=== PATIENT | male | born 1960 | race African-American/Black ===

== ENCOUNTER 2017-03-04 14:43 | Inpatient (IN) | payer BC ==
[2017-03-04 16:07] VITALS: BMI 20.9
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
[2017-03-04] MEDS ORDERED: chlordiazePOXIDE HCL 25 MG CAPSULE PO PRN (17:16)
[2017-03-04] MEDS ORDERED: LOPERAMIDE HCL 2 MG CAPSULE PO PRN (17:16)
[2017-03-04] MEDS ORDERED: ACETAMINOPHEN 325 MG TABLET (FP) PO PRN (17:16)
[2017-03-04] MEDS ORDERED: MENTHOL/PHENOL 1 EACH UD MM PRN (17:16)
[2017-03-04] MEDS ORDERED: guaiFENesin/D-METHORPHAN HB 10 ML UNIT-DOSE CUPS PO PRN (17:16)
[2017-03-04] MEDS ORDERED: IBUPROFEN 400 MG TABLET (FP) PO PRN (17:16)
[2017-03-04] MEDS ORDERED: hydrOXYzine PAMOATE 25 MG CAPSULE (FP) PO PRN (17:16)
[2017-03-04] MEDS ORDERED: MAGNESIUM HYDROX 2400MG/30ML ORAL SUSPENSION 30 ML CUP PO PRN (17:16)
[2017-03-04] MEDS ORDERED: MAG HYDROX/AL HYDROX/SIMETH 30 ML UNIT-DOSE CUP PO PRN (17:16)
[2017-03-04] MEDS ORDERED: MAGNESIUM CITRATE 300 ML BOTTLE PO PRN (17:16)
[2017-03-04] MEDS ORDERED: P-EPHED 60MG/TRIPROLIDI 2.5MG TABLET PO PRN (17:16)
[2017-03-04] MEDS ORDERED: chlordiazePOXIDE HCL 25 MG CAPSULE PO ONE (18:15)
[2017-03-04] MEDS: THIAMINE HCL 100 MG TABLET (FP) PO SCH (22:07)
[2017-03-04] MEDS: diphenhydrAMINE HCL 50 MG CAPSULE PO PRN (22:07)
[2017-03-04] MEDS: ATORVASTATIN CA 40 MG TABLET (FP) PO SCH (22:07)
[2017-03-04] MEDS: chlordiazePOXIDE HCL 25 MG CAPSULE PO SCH (22:07)
[2017-03-05] MEDS: chlordiazePOXIDE HCL 25 MG CAPSULE PO SCH ×4 (05:42→22:09)
[2017-03-05 09:48] LABS: MCH 29.2 pg (25.7-33.7); MCHC 31.5 g/dl (32.0-35.9); MEAN CELL VOLUME 92.9 fl (80-96); MEAN PLT VOLUME 9.9 fl (7.5-11.1); PLATELET COUNT 110 K/MM3 (134-434); RDW 23.4 % (11.9-15.9); WHITE BLOOD COUNT 3.4 K/mm3 (4.0-10.0)
[2017-03-05 10:00] LABS: INR 3.34 (0.82-1.09); PROTHROMBIN TIME (PATIENT) 37.6 SEC (9.98-11.88)
[2017-03-05] MEDS: METOPROLOL SUCCINATE 25 MG TAB.SR.24H (FP) PO SCH (10:10)
[2017-03-05] MEDS: PRENATAL VITAMINS W/ FOLIC ACID TABLET (FP) PO SCH (10:10)
[2017-03-05 10:14] LABS: ALBUMIN 2.7 g/dl (3.4-5.0); ANION GAP 6 (8-16); BILIRUBIN,TOTAL 0.4 mg/dL (0.2-1.0); CALCIUM 7.7 mg/dL (8.5-10.1); CO2 27 mmol/L (21-32); GLUCOSE,RANDOM 97 mg/dL (74-106); SGPT/ALT 130 U/L (12-78)
[2017-03-05 10:16] LABS: ALK PHOS 156 U/L (45-117); CREATININE 0.8 mg/dL (0.7-1.3); TOT PROT 7.1 g/dl (6.4-8.2)
--- NOTE | 2017-03-05 10:25 | PN ---
[facility] CIWA - CIWA Score Nausea/Vomitin-No Nausea/No Vomiting Muscle Tremors: 4-Moderate,w/Arms Extend Anxiety: 4-Mod. Anxious/Guarded Agitation: 4-Moderately Restless Paroxysmal Sweats: 1-Minimal Palms Moist Orientation: 0-Oriented Tacttile Disturbances: 3-Moderate Itch/Numb/Burn Auditory Disturbances: 0-None Visual Disturbances: 0-None Headache: 0-None Present CIWA-Ar Total Score: 16 BHS Progress Note (SOAP) Subjective: ANXIETY,SWEATS, BODY ACHES/LEG PAIN. Objective: 03/05/17 10:23 Vital Signs Temperature 97.4 F L 03/05/17 09:35 Pulse Rate 77 03/05/17 09:35 Respiratory Rate 18 03/05/17 09:35 Blood Pressure 114/59 03/05/17 09:35 O2 Sat by Pulse Oximetry (%) Laboratory Last Values WBC 3.4 K/mm3 (4.0-10.0) L 03/05/17 08:00 RBC 3.31 M/mm3 (4.00-5.60) L 03/05/17 08:00 Hgb 9.7 GM/dL (11.7-16.9) L 03/05/17 08:00 Hct 30.7 % (35.4-49) L 03/05/17 08:00 MCV 92.9 fl (80-96) 03/05/17 08:00 MCH 29.2 pg (25.7-33.7) 03/05/17 08:00 MCHC 31.5 g/dl (32.0-35.9) L 03/05/17 08:00 RDW 23.4 % (11.9-15.9) H 03/05/17 08:00 Plt Count 110 K/MM3 (134-434) L 03/05/17 08:00 MPV 9.9 fl (7.5-11.1) 03/05/17 08:00 PT with INR 37.60 SEC (9.98-11.88) H 03/05/17 08:00 INR 3.34 (0.82-1.09) H 03/05/17 08:00 OTHER LABS RESULT PENDING Assessment: 03/05/17 10:24 WITHDRAWAL SX Plan: CONTINUE DETOX
[2017-03-05] MEDS: AMIODARONE HCL 200 MG TABLET (FP) PO SCH (11:44)
[2017-03-05 11:51] LABS: SGOT/AST 406 U/L (15-37)
[2017-03-05] MEDS ORDERED: WARFARIN NA 2 MG TABLET (UD) PO SCH (18:00)
[2017-03-05 21:48] LABS: URINE APPEARANCE CLEAR; URINE BILIRUBIN NEGATIVE (NEGATIVE); URINE BLOOD NEGATIVE (NEGATIVE); URINE COLOR LTYELLOW; URINE GLUCOSE (UA) 1+ (NEGATIVE); URINE KETONE NEGATIVE (NEGATIVE); URINE LEUK ESTERASE NEGATIVE (NEGATIVE); URINE NITRITE NEGATIVE (NEGATIVE); URINE PROTEIN NEGATIVE (NEGATIVE); URINE UROBILINOGEN NEGATIVE mg/dL (0.2-1.0)
[2017-03-05] MEDS: THIAMINE HCL 100 MG TABLET (FP) PO SCH (22:09)
[2017-03-05] MEDS: ATORVASTATIN CA 40 MG TABLET (FP) PO SCH (22:09)
[2017-03-05] MEDS: diphenhydrAMINE HCL 50 MG CAPSULE PO PRN (22:10)
[2017-03-06] MEDS: chlordiazePOXIDE HCL 25 MG CAPSULE PO SCH ×3 (06:16→17:29)
--- NOTE | 2017-03-06 09:52 | EKG ---
Test Reason : Blood Pressure : / mmHG Vent. Rate : 081 BPM Atrial Rate : 081 BPM P-R Int : 198 ms QRS Dur : 096 ms QT Int : 424 ms P-R-T Axes : 067 007 070 degrees QTc Int : 492 ms NORMAL SINUS RHYTHM NONSPECIFIC T WAVE ABNORMALITY PROLONGED QT ABNORMAL ECG NO PREVIOUS ECGS AVAILABLE Confirmed by ALVARO TORRES, DEBBIE ([id number]) on 03/06/2017 9:52:19 AM Referred By: Bradly Rizo Confirmed By:DEBBIE JOHN MD
[2017-03-06] MEDS: PRENATAL VITAMINS W/ FOLIC ACID TABLET (FP) PO SCH (10:13)
[2017-03-06] MEDS: METOPROLOL SUCCINATE 25 MG TAB.SR.24H (FP) PO SCH (10:13)
[2017-03-06] MEDS: AMIODARONE HCL 200 MG TABLET (FP) PO SCH (10:13)
[2017-03-06 10:15] LABS: INR 3.14 (0.82-1.09); PROTHROMBIN TIME (PATIENT) 35.4 SEC (9.98-11.88)
[2017-03-06] MEDS ORDERED: ONDANSETRON *ODT* 4 MG TABLET SL PRN (10:17)
--- NOTE | 2017-03-06 12:52 | PN ---
S CIWA - CIWA Score Nausea/Vomitin-No Nausea/No Vomiting Muscle Tremors: 3 Anxiety: 4-Mod. Anxious/Guarded Agitation: 3 Paroxysmal Sweats: 3 Orientation: 0-Oriented Tacttile Disturbances: 0-None Auditory Disturbances: 0-None Visual Disturbances: 0-None Headache: 0-None Present CIWA-Ar Total Score: 13 BHS Progress Note (SOAP) Subjective: Anxiety,tremors,sweating,interrupted sleep Objective: 03/06/17 12:54 Vital Signs - 8 hr 03/06/17 03/06/17 06:29 09:26 Temperature 97.5 F L 96.9 F L Pulse Rate 76 93 H Respiratory 18 18 Rate Blood Pressure 131/90 124/79 Laboratory Tests 03/05/17 03/05/17 03/05/17 07:00 07:00 08:00 WBC 3.4 L RBC 3.31 L Hgb 9.7 L Hct 30.7 L MCV 92.9 MCH 29.2 MCHC 31.5 L RDW 23.4 H Plt Count 110 L MPV 9.9 PT with INR INR Sodium 138 Potassium 4.0 Chloride 105 Carbon Dioxide 27 Anion Gap 6 L BUN 5 L Creatinine 0.8 Creat Clearance w eGFR > 60 Random Glucose 97 Calcium 7.7 L Total Bilirubin 0.4 AST 406 H ALT 130 H Alkaline Phosphatase 156 H Total Protein 7.1 Albumin 2.7 L Urine Color Urine Appearance Urine pH Ur Specific [place] Urine Protein Urine Glucose (UA) Urine Ketones Urine Blood Urine Nitrite Urine Bilirubin Urine Urobilinogen RPR Titer Nonreactive 03/05/17 03/05/17 03/06/17 08:00 21:39 07:00 WBC RBC Hgb Hct MCV MCH MCHC RDW Plt Count MPV PT with INR 37.60 H 35.40 H INR 3.34 H 3.14 H Sodium Potassium Chloride Carbon Dioxide Anion Gap BUN Creatinine Creat Clearance w eGFR Random Glucose Calcium Total Bilirubin AST ALT Alkaline Phosphatase Total Protein Albumin Urine Color Ltyellow Urine Appearance Clear Urine pH 6.0 Ur Specific [place] 1.010 Urine Protein Negative Urine Glucose (UA) 1+ H Urine Ketones Negative Urine Blood Negative Urine Nitrite Negative Urine Bilirubin Negative Urine Urobilinogen Negative RPR Titer labs noted,we'll continue to hold coumadin Assessment: 03/06/17 12:58 Withdrawal sx. Plan: Continue detox
[2017-03-06] MEDS: diphenhydrAMINE HCL 50 MG CAPSULE PO PRN (22:34)
[2017-03-06] MEDS: ATORVASTATIN CA 40 MG TABLET (FP) PO SCH (22:34)
[2017-03-06] MEDS: chlordiazePOXIDE 5 MG CAPSULE PO SCH (22:34)
[2017-03-06] MEDS: THIAMINE HCL 100 MG TABLET (FP) PO SCH (22:34)
[2017-03-07] MEDS: chlordiazePOXIDE 5 MG CAPSULE PO SCH ×3 (06:15→17:30)
[2017-03-07 09:54] LABS: MCH 29.2 pg (25.7-33.7); MCHC 30.7 g/dl (32.0-35.9); MEAN CELL VOLUME 94.9 fl (80-96); MEAN PLT VOLUME 10.6 fl (7.5-11.1); PLATELET COUNT 106 K/MM3 (134-434); RDW 23.7 % (11.9-15.9); WHITE BLOOD COUNT 3.2 K/mm3 (4.0-10.0)
[2017-03-07 10:05] LABS: INR 2.34 (0.82-1.09); PROTHROMBIN TIME (PATIENT) 26.2 SEC (9.98-11.88)
[2017-03-07 10:07] LABS: ACTIVATED PTT 47.6 SECONDS (26.9-34.4)
[2017-03-07] MEDS: METOPROLOL SUCCINATE 25 MG TAB.SR.24H (FP) PO SCH (10:18)
[2017-03-07] MEDS: PRENATAL VITAMINS W/ FOLIC ACID TABLET (FP) PO SCH (10:18)
[2017-03-07] MEDS: AMIODARONE HCL 200 MG TABLET (FP) PO SCH (10:18)
[2017-03-07 10:35] LABS: ALK PHOS 130 U/L (45-117); SGOT/AST 107 U/L (15-37); SGPT/ALT 68 U/L (12-78)
--- NOTE | 2017-03-07 11:19 | PN ---
S Progress Note (SOAP) Subjective: Interrupted sleep, Fatigue, Nausea, H/A, Body Aches, Diarrhea, Sweating. Objective: PT. A & O X 3, OBSERVED AMBULATING ON UNIT. NO ACUTE DISTRESS. PT. REPORTS HISTORY OF ANEMIA, FOR WHICH HE HAS TAKEN IRON SUPPLEMENTATION IN PAST. 03/07/17 11:17 Vital Signs Temperature 98.0 F 03/07/17 09:22 Pulse Rate 69 03/07/17 09:22 Respiratory Rate 18 03/07/17 09:22 Blood Pressure 149/92 03/07/17 09:22 O2 Sat by Pulse Oximetry (%) Laboratory Tests 03/05/17 03/05/17 03/05/17 07:00 07:00 08:00 WBC 3.4 L RBC 3.31 L Hgb 9.7 L Hct 30.7 L MCV 92.9 MCH 29.2 MCHC 31.5 L RDW 23.4 H Plt Count 110 L MPV 9.9 PT with INR INR PTT (Actin FS) Sodium 138 Potassium 4.0 Chloride 105 Carbon Dioxide 27 Anion Gap 6 L BUN 5 L Creatinine 0.8 Creat Clearance w eGFR > 60 Random Glucose 97 Calcium 7.7 L Total Bilirubin 0.4 AST 406 H ALT 130 H Alkaline Phosphatase 156 H Total Protein 7.1 Albumin 2.7 L Urine Color Urine Appearance Urine pH Ur Specific [place] Urine Protein Urine Glucose (UA) Urine Ketones Urine Blood Urine Nitrite Urine Bilirubin Urine Urobilinogen RPR Titer Nonreactive 03/05/17 03/05/17 03/06/17 08:00 21:39 07:00 WBC RBC Hgb Hct MCV MCH MCHC RDW Plt Count MPV PT with INR 37.60 H 35.40 H INR 3.34 H 3.14 H PTT (Actin FS) Sodium Potassium Chloride Carbon Dioxide Anion Gap BUN Creatinine Creat Clearance w eGFR Random Glucose Calcium Total Bilirubin AST ALT Alkaline Phosphatase Total Protein Albumin Urine Color Ltyellow Urine Appearance Clear Urine pH 6.0 Ur Specific [place] 1.010 Urine Protein Negative Urine Glucose (UA) 1+ H Urine Ketones Negative Urine Blood Negative Urine Nitrite Negative Urine Bilirubin Negative Urine Urobilinogen Negative RPR Titer 03/07/17 03/07/17 03/07/17 07:00 07:00 07:00 WBC 3.2 L RBC 3.31 L Hgb 9.6 L Hct 31.4 L MCV 94.9 MCH 29.2 MCHC 30.7 L RDW 23.7 H Plt Count 106 L MPV 10.6 PT with INR 26.20 H INR 2.34 H PTT (Actin FS) 47.6 H Sodium Potassium Chloride Carbon Dioxide Anion Gap BUN Creatinine Creat Clearance w eGFR Random Glucose Calcium Total Bilirubin AST 107 H D ALT 68 D Alkaline Phosphatase 130 H Total Protein Albumin Urine Color Urine Appearance Urine pH Ur Specific [place] Urine Protein Urine Glucose (UA) Urine Ketones Urine Blood Urine Nitrite Urine Bilirubin Urine Urobilinogen RPR Titer LABS NOTED. RESULTS OF REPEAT CBC, PT / INR, AST, ALT, AND AP NOTED. 03/07/17 11:24 03/07/17 14:39 Assessment: 03/07/17 11:18 WITHDRAWAL SYMPTOMS. Plan: CONTINUE DETOX. COUMADIN, 2 MG PO @ 1800. FEOSOL, 325 MG PO BIDWM.
[2017-03-07] MEDS ORDERED: FERROUS SO4 325 MG TABLET (FP) PO SCH (17:30)
[2017-03-07] MEDS: FERROUS SO4 325 MG TABLET (FP) PO SCH (17:33)
[2017-03-07] MEDS: WARFARIN NA 2 MG TABLET (UD) PO SCH (17:42)
[2017-03-07] MEDS: ATORVASTATIN CA 40 MG TABLET (FP) PO SCH (22:10)
[2017-03-07] MEDS: chlordiazePOXIDE HCL 10 MG CAPSULE PO SCH (22:10)
[2017-03-07] MEDS: THIAMINE HCL 100 MG TABLET (FP) PO SCH (22:10)
[2017-03-07] MEDS: diphenhydrAMINE HCL 50 MG CAPSULE PO PRN (22:10)
[2017-03-08] MEDS: chlordiazePOXIDE HCL 10 MG CAPSULE PO SCH ×3 (05:17→17:26)
[2017-03-08] MEDS: FERROUS SO4 325 MG TABLET (FP) PO SCH ×2 (08:14→17:26)
[2017-03-08] MEDS: PRENATAL VITAMINS W/ FOLIC ACID TABLET (FP) PO SCH (10:09)
[2017-03-08] MEDS: AMIODARONE HCL 200 MG TABLET (FP) PO SCH (10:10)
[2017-03-08] MEDS: METOPROLOL SUCCINATE 25 MG TAB.SR.24H (FP) PO SCH (10:10)
--- NOTE | 2017-03-08 10:26 | DS ---
[facility] Detox Discharge Summary Admission Date: 03/04/17 Discharge Date: 03/08/17 - History Present History: Alcohol Dependence Pertinent Past History: HTN, cardiac valve Repair,hypercholesterolemia, - Physical Exam Results Vital Signs: Vital Signs Temperature 95.8 F L 03/08/17 09:46 Pulse Rate 85 03/08/17 09:46 Respiratory Rate 18 03/08/17 09:46 Blood Pressure 124/63 03/08/17 09:46 O2 Sat by Pulse Oximetry (%) Pertinent Admission Physical Exam Findings: Withdrawal sx Laboratory Last Values WBC 3.2 K/mm3 (4.0-10.0) L 03/07/17 07:00 RBC 3.31 M/mm3 (4.00-5.60) L 03/07/17 07:00 Hgb 9.6 GM/dL (11.7-16.9) L 03/07/17 07:00 Hct 31.4 % (35.4-49) L 03/07/17 07:00 MCV 94.9 fl (80-96) 03/07/17 07:00 MCH 29.2 pg (25.7-33.7) 03/07/17 07:00 MCHC 30.7 g/dl (32.0-35.9) L 03/07/17 07:00 RDW 23.7 % (11.9-15.9) H 03/07/17 07:00 Plt Count 106 K/MM3 (134-434) L 03/07/17 07:00 MPV 10.6 fl (7.5-11.1) 03/07/17 07:00 PT with INR 26.20 SEC (9.98-11.88) H 03/07/17 07:00 INR 2.34 (0.82-1.09) H 03/07/17 07:00 PTT (Actin FS) 47.6 SECONDS (26.9-34.4) H 03/07/17 07:00 Sodium 138 mmol/L (136-145) 03/05/17 07:00 Potassium 4.0 mmol/L (3.5-5.1) 03/05/17 07:00 Chloride 105 mmol/L (98-107) 03/05/17 07:00 Carbon Dioxide 27 mmol/L (21-32) 03/05/17 07:00 Anion Gap 6 (8-16) L 03/05/17 07:00 BUN 5 mg/dL (7-18) L 03/05/17 07:00 Creatinine 0.8 mg/dL (0.7-1.3) 03/05/17 07:00 Creat Clearance w eGFR > 60 (>60) 03/05/17 07:00 Random Glucose 97 mg/dL (74-106) 03/05/17 07:00 Calcium 7.7 mg/dL (8.5-10.1) L 03/05/17 07:00 Total Bilirubin 0.4 mg/dL (0.2-1.0) 03/05/17 07:00 AST 107 U/L (15-37) H D 03/07/17 07:00 ALT 68 U/L (12-78) D 03/07/17 07:00 Alkaline Phosphatase 130 U/L (45-117) H 03/07/17 07:00 Total Protein 7.1 g/dl (6.4-8.2) 03/05/17 07:00 Albumin 2.7 g/dl (3.4-5.0) L 03/05/17 07:00 Urine Color Ltyellow 03/05/17 21:39 Urine Appearance Clear 03/05/17 21:39 Urine pH 6.0 (5.0-8.0) 03/05/17 21:39 Ur Specific [place] 1.010 (1.005-1.025) 03/05/17 21:39 Urine Protein Negative (NEGATIVE) 03/05/17 21:39 Urine Glucose (UA) 1+ (NEGATIVE) H 03/05/17 21:39 Urine Ketones Negative (NEGATIVE) 03/05/17 21:39 Urine Blood Negative (NEGATIVE) 03/05/17 21:39 Urine Nitrite Negative (NEGATIVE) 03/05/17 21:39 Urine Bilirubin Negative (NEGATIVE) 03/05/17 21:39 Urine Urobilinogen Negative mg/dL (0.2-1.0) 03/05/17 21:39 RPR Titer Nonreactive (NONREACTIVE) 03/05/17 07:00 Labs noted, Pt on feosol - Treatment Hospital Course: Detox Protocol Followed, Detoxed Safely, Responded well, Discharged Condition Good, Rehab Referral Accepted Patient has Accepted a Rehab Referral to: [facility] - Medication Discharge Medications: Ambulatory Orders Amiodarone HCl [Cordarone -] 200 mg PO DAILY 03/04/17 Atorvastatin Ca [Lipitor] 40 mg PO HS 03/04/17 Folic Acid - 1 mg PO DAILY 03/04/17 Metoprolol Succinate [Toprol Xl -] 25 mg PO DAILY 03/04/17 Multivitamins [Tab-A-Vit -] 1 tab PO DAILY 03/04/17 Thiamine Mononitrate [Vitamin B-1] 100 mg PO DAILY 03/04/17 Warfarin Na [Coumadin] 2 mg PO DAILY 03/04/17 - Diagnosis (1) Alcohol dependence with uncomplicated withdrawal Current Visit: Yes Status: Acute (2) Essential hypertension Current Visit: Yes Status: Acute (3) Hypercholesterolemia Current Visit: Yes Status: Acute (4) Status post cardiac surgery Current Visit: Yes Status: Acute - AMA Did Patient Leave Against Medical Advice: No
[2017-03-08] MEDS: WARFARIN NA 2 MG TABLET (UD) PO SCH (17:26)
[2017-03-08 18:03] VITALS: BP 130/77; PULSE 67; TEMP 96.6
== END 2017-03-08 18:18 | disposition other institution (70) | DRG 775 ==
LOC: YASAS 14:43 → Y3N 17:36
PROVIDERS: ADMIT Internal Medicine; ATTEND Internal Medicine
PROC: HZ2ZZZZ Detoxification Services for Substance Abuse Treatment (ICD-10-PCS; principal; 2017-03-04)
DX: F10.230 Alcohol dependence with withdrawal, uncomplicated (principal); I10 Essential (primary) hypertension; E78.00 Pure hypercholesterolemia, unspecified; Z98.890 Other specified postprocedural states; Z79.01 Long term (current) use of anticoagulants; Z87.11 Personal history of peptic ulcer disease
CPT/HCPCS: 36415; 71010-TC; 80053; 81003; 84075; 84450; 84460; 85027; 85610; 85730; 86593; 93005; 93010

== ENCOUNTER 2017-03-08 19:26 | Inpatient (IN) | payer BC ==
--- NOTE | 2017-03-08 22:13 | HP ---
[facility] Rehab Assess/Revision - Admission History Admitted to Rehab from: [facility] Date of Admission to Rehab: 03/08/17 - Vital signs Vital Signs: Vital Signs Period Temp Pulse Resp BP Sys/Simms Pulse Ox Last 24 Hr 96.0 F 80 18 128/72 - Findings Detox History & Physical reviewed: Yes Concur with findings: Yes Comments/Additional Findings: transferred from detox to rehab admission as per protocol
[2017-03-08] MEDS ORDERED: NICOTINE 14 MG/24 HOURS TOPICAL PATCH TD PRN (22:14)
[2017-03-08] MEDS ORDERED: NICOTINE POLACRILEX 2 MG GUM BUC PRN (22:14)
[2017-03-08] MEDS ORDERED: P-EPHED 60MG/TRIPROLIDI 2.5MG TABLET PO PRN (22:14)
[2017-03-08] MEDS ORDERED: LOPERAMIDE HCL 2 MG CAPSULE PO PRN (22:14)
[2017-03-08] MEDS ORDERED: MAG HYDROX/AL HYDROX/SIMETH 30 ML UNIT-DOSE CUP PO PRN (22:14)
[2017-03-08] MEDS ORDERED: MAGNESIUM CITRATE 300 ML BOTTLE PO PRN (22:14)
[2017-03-08] MEDS ORDERED: MAGNESIUM HYDROX 2400MG/30ML ORAL SUSPENSION 30 ML CUP PO PRN (22:14)
[2017-03-09] MEDS: AMIODARONE HCL 200 MG TABLET (FP) PO SCH (10:00)
[2017-03-09] MEDS: PRENATAL VITAMINS W/ FOLIC ACID TABLET (FP) PO SCH (10:27)
[2017-03-09] MEDS: METOPROLOL SUCCINATE 25 MG TAB.SR.24H (FP) PO SCH (10:27)
[2017-03-09 10:30] LABS: INR 1.82 (0.82-1.09); PROTHROMBIN TIME (PATIENT) 20.3 SEC (9.98-11.88)
[2017-03-09 12:18] LABS: HIV 1 & 2 AB NEGATIVE; HIV 1 AGp24 NEGATIVE
[2017-03-09] MEDS: WARFARIN NA 2 MG TABLET (UD) PO SCH (17:55)
[2017-03-09] MEDS: diphenhydrAMINE HCL 50 MG CAPSULE PO PRN (21:32)
[2017-03-09] MEDS: ATORVASTATIN CA 40 MG TABLET (FP) PO SCH (21:32)
[2017-03-09] MEDS: THIAMINE HCL 100 MG TABLET (FP) PO SCH (21:32)
[2017-03-10] MEDS: PRENATAL VITAMINS W/ FOLIC ACID TABLET (FP) PO SCH (10:30)
[2017-03-10] MEDS: AMIODARONE HCL 200 MG TABLET (FP) PO SCH (10:30)
[2017-03-10] MEDS: METOPROLOL SUCCINATE 25 MG TAB.SR.24H (FP) PO SCH (10:30)
[2017-03-10] MEDS: WARFARIN NA 2 MG TABLET (UD) PO SCH (17:10)
[2017-03-10] MEDS: ATORVASTATIN CA 40 MG TABLET (FP) PO SCH (21:07)
[2017-03-10] MEDS: THIAMINE HCL 100 MG TABLET (FP) PO SCH (21:07)
[2017-03-10] MEDS: diphenhydrAMINE HCL 50 MG CAPSULE PO PRN (21:08)
--- NOTE | 2017-03-11 06:32 | HP ---
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 Psychiatric History: Denies history of previous psychiatric treatment Physical/Sexual Abuse/Trauma History: Denies history of verbal, physical or sexual abuse as well as DV relationship. No service Additional Comment: Reports history of previous misdemeanor arrests. No probation currently Vital Signs: Vital Signs - 24 hr 03/10/17 03/10/17 03/11/17 07:35 10:00 00:30 Temperature 98.3 F Pulse Rate 62 87 Respiratory 16 18 Rate Blood Pressure 137/82 135/77 03/11/17 03:30 Temperature Pulse Rate Respiratory 18 Rate Blood Pressure Allergies/Adverse Reactions: Allergies Allergy/AdvReac Type Severity Reaction Status Date / Time No Known Allergies Allergy Verified 03/04/17 16:40 Date of last physical exam: 03/04/17 Concur with the findings of this exam: Yes - Substance Abuse/Tx History Hx Alcohol Use: Yes Hx Substance Use: No Substance Use Type: Alcohol (Started drinking alcohol at age 11, consumes 2x 6pk daily. Last drink on 03/04/17) Hx Substance Use Treatment: Yes (4 previous inpt detox including recent one @ [facility] & 3 inpt rehab) Mental Status Exam - Mental Status Exam Alert and Oriented to: Time, Place Cognitive Function: Fair Patient Appearance: Well Groomed Mood: Hopeful, Euthymic Affect: Appropriate Patient Behavior: Cooperative Speech Pattern: Clear Voice Loudness: Normal Thought Process: Intact Thought Disorder: Not Present Hallucinations: Denies Suicidal Ideation: Denies Homicidal Ideation: Denies Insight/Judgement: Fair Sleep: Poorly Appetite: Good Muscle strength/Tone: Normal Gait/Station: Normal Psychiatric Findings - Problem List ([place] 1, 2,3) (1) Alcohol dependence Current Visit: Yes Status: Acute (2) Alcohol-induced sleep disorder Current Visit: Yes Status: Acute (3) Essential hypertension Current Visit: No Status: Acute (4) Hypercholesterolemia Current Visit: No Status: Acute (5) History of abdominal surgery Current Visit: No Status: Acute (6) History of peptic ulcer Current Visit: No Status: Acute (7) Status post cardiac surgery Current Visit: No Status: Acute - Initial Treatment Plan Initial Treatment Plan: 1) Start Belsomra 10 mg po HS prn for insmnia. 2) Monitor progress
[2017-03-11] MEDS: PRENATAL VITAMINS W/ FOLIC ACID TABLET (FP) PO SCH (10:01)
[2017-03-11] MEDS: AMIODARONE HCL 200 MG TABLET (FP) PO SCH (10:01)
[2017-03-11] MEDS: METOPROLOL SUCCINATE 25 MG TAB.SR.24H (FP) PO SCH (10:01)
[2017-03-11] MEDS: WARFARIN NA 2 MG TABLET (UD) PO SCH (18:24)
[2017-03-11] MEDS: ATORVASTATIN CA 40 MG TABLET (FP) PO SCH (21:43)
[2017-03-11] MEDS: THIAMINE HCL 100 MG TABLET (FP) PO SCH (21:43)
[2017-03-11] MEDS ORDERED: SUVOREXANT 10 MG TABLET PO PRN (22:00)
[2017-03-12] MEDS: METOPROLOL SUCCINATE 25 MG TAB.SR.24H (FP) PO SCH (10:25)
[2017-03-12] MEDS: PRENATAL VITAMINS W/ FOLIC ACID TABLET (FP) PO SCH (10:25)
[2017-03-12] MEDS: AMIODARONE HCL 200 MG TABLET (FP) PO SCH (10:25)
[2017-03-12] MEDS: WARFARIN NA 2 MG TABLET (UD) PO SCH (18:27)
[2017-03-12] MEDS: ATORVASTATIN CA 40 MG TABLET (FP) PO SCH (21:40)
[2017-03-12] MEDS: THIAMINE HCL 100 MG TABLET (FP) PO SCH (21:41)
[2017-03-12] MEDS: diphenhydrAMINE HCL 50 MG CAPSULE PO PRN (21:41)
[2017-03-13] MEDS: PRENATAL VITAMINS W/ FOLIC ACID TABLET (FP) PO SCH (10:15)
[2017-03-13] MEDS: AMIODARONE HCL 200 MG TABLET (FP) PO SCH (10:15)
[2017-03-13] MEDS: METOPROLOL SUCCINATE 25 MG TAB.SR.24H (FP) PO SCH (10:15)
[2017-03-13] MEDS ORDERED: WARFARIN NA 2 MG TABLET (UD) PO SCH (18:00)
[2017-03-13] MEDS: THIAMINE HCL 100 MG TABLET (FP) PO SCH (21:35)
[2017-03-13] MEDS: diphenhydrAMINE HCL 50 MG CAPSULE PO PRN (21:35)
[2017-03-13] MEDS: ATORVASTATIN CA 40 MG TABLET (FP) PO SCH (21:35)
[2017-03-14] MEDS: PRENATAL VITAMINS W/ FOLIC ACID TABLET (FP) PO SCH (09:41)
[2017-03-14] MEDS: METOPROLOL SUCCINATE 25 MG TAB.SR.24H (FP) PO SCH (09:41)
[2017-03-14] MEDS: AMIODARONE HCL 200 MG TABLET (FP) PO SCH (09:41)
[2017-03-14 10:25] LABS: INR 1.66 (0.82-1.09); PROTHROMBIN TIME (PATIENT) 18.4 SEC (9.98-11.88)
[2017-03-14] MEDS ORDERED: WARFARIN NA 2.5 MG TABLET (FP) PO SCH (18:00)
[2017-03-14] MEDS: THIAMINE HCL 100 MG TABLET (FP) PO SCH (21:47)
[2017-03-14] MEDS: ATORVASTATIN CA 40 MG TABLET (FP) PO SCH (21:47)
[2017-03-15] MEDS: AMIODARONE HCL 200 MG TABLET (FP) PO SCH (10:26)
[2017-03-15] MEDS: METOPROLOL SUCCINATE 25 MG TAB.SR.24H (FP) PO SCH (10:26)
[2017-03-15] MEDS: PRENATAL VITAMINS W/ FOLIC ACID TABLET (FP) PO SCH (10:26)
[2017-03-15 10:39] LABS: INR 1.88 (0.82-1.09); PROTHROMBIN TIME (PATIENT) 20.9 SEC (9.98-11.88)
[2017-03-15] MEDS ORDERED: WARFARIN NA 10 MG TABLET (FP) PO SCH (18:00)
[2017-03-15] MEDS ORDERED: WARFARIN NA 5 MG TABLET (UD) PO SCH (18:00)
[2017-03-15] MEDS: diphenhydrAMINE HCL 50 MG CAPSULE PO PRN (21:37)
[2017-03-15] MEDS: THIAMINE HCL 100 MG TABLET (FP) PO SCH (21:37)
[2017-03-15] MEDS: ATORVASTATIN CA 40 MG TABLET (FP) PO SCH (21:37)
[2017-03-16] MEDS: ACETAMINOPHEN 325 MG TABLET (FP) PO PRN ×2 (01:44→21:34)
[2017-03-16] MEDS: diphenhydrAMINE HCL 50 MG CAPSULE PO PRN ×2 (01:44→21:33)
[2017-03-16] MEDS: PRENATAL VITAMINS W/ FOLIC ACID TABLET (FP) PO SCH (10:18)
[2017-03-16] MEDS: AMIODARONE HCL 200 MG TABLET (FP) PO SCH (10:18)
[2017-03-16] MEDS: METOPROLOL SUCCINATE 25 MG TAB.SR.24H (FP) PO SCH (10:18)
[2017-03-16 10:47] LABS: INR 3.39 (0.82-1.09); PROTHROMBIN TIME (PATIENT) 38.2 SEC (9.98-11.88)
--- NOTE | 2017-03-16 16:42 | PN ---
[facility] Progress Note Note: Decrease coumadin to 2mg daily repeat inr
[2017-03-16] MEDS: WARFARIN NA 2 MG TABLET (UD) PO SCH (18:10)
[2017-03-16] MEDS: ATORVASTATIN CA 40 MG TABLET (FP) PO SCH (21:33)
[2017-03-16] MEDS: THIAMINE HCL 100 MG TABLET (FP) PO SCH (21:33)
[2017-03-17] MEDS: ACETAMINOPHEN 325 MG TABLET (FP) PO PRN ×2 (01:29→21:42)
[2017-03-17] MEDS: diphenhydrAMINE HCL 50 MG CAPSULE PO PRN ×2 (01:29→21:42)
[2017-03-17] MEDS: PRENATAL VITAMINS W/ FOLIC ACID TABLET (FP) PO SCH (10:19)
[2017-03-17] MEDS: METOPROLOL SUCCINATE 25 MG TAB.SR.24H (FP) PO SCH (10:20)
[2017-03-17] MEDS: AMIODARONE HCL 200 MG TABLET (FP) PO SCH (10:20)
[2017-03-17] MEDS: WARFARIN NA 2 MG TABLET (UD) PO SCH (18:13)
[2017-03-17] MEDS: ATORVASTATIN CA 40 MG TABLET (FP) PO SCH (21:41)
[2017-03-17] MEDS: THIAMINE HCL 100 MG TABLET (FP) PO SCH (21:41)
[2017-03-18] MEDS: ACETAMINOPHEN 325 MG TABLET (FP) PO PRN ×2 (06:08→21:35)
[2017-03-18] MEDS: METOPROLOL SUCCINATE 25 MG TAB.SR.24H (FP) PO SCH (10:37)
[2017-03-18] MEDS: AMIODARONE HCL 200 MG TABLET (FP) PO SCH (10:37)
[2017-03-18] MEDS: PRENATAL VITAMINS W/ FOLIC ACID TABLET (FP) PO SCH (10:37)
[2017-03-18] MEDS: WARFARIN NA 2 MG TABLET (UD) PO SCH (17:10)
[2017-03-18] MEDS: FERROUS SO4 325 MG TABLET (FP) PO SCH (17:10)
[2017-03-18] MEDS: ATORVASTATIN CA 40 MG TABLET (FP) PO SCH (21:33)
[2017-03-18] MEDS: THIAMINE HCL 100 MG TABLET (FP) PO SCH (21:33)
[2017-03-18] MEDS: diphenhydrAMINE HCL 50 MG CAPSULE PO PRN (21:34)
[2017-03-18] MEDS: DOCUSATE SODIUM 100 MG CAPSULE (FP) PO SCH (21:36)
[2017-03-19] MEDS: FERROUS SO4 325 MG TABLET (FP) PO SCH ×3 (07:05→18:06)
[2017-03-19 10:14] LABS: BASOPHIL 2.6 % (0-2.0); EOSINOPHIL 1.4 % (0-4.5); MCH 29.9 pg (25.7-33.7); MCHC 31.1 g/dl (32.0-35.9); MEAN CELL VOLUME 96.2 fl (80-96); MEAN PLT VOLUME 11.2 fl (7.5-11.1); NEUTROPHILS 52.2 % (42.8-82.8); PLATELET COUNT 156 K/MM3 (134-434); RDW 24.9 % (11.9-15.9); WHITE BLOOD COUNT 3.9 K/mm3 (4.0-10.0)
[2017-03-19 10:21] LABS: INR 3.25 (0.82-1.09); PROTHROMBIN TIME (PATIENT) 35.7 SEC (9.98-11.88)
[2017-03-19] MEDS: AMIODARONE HCL 200 MG TABLET (FP) PO SCH (10:46)
[2017-03-19] MEDS: PRENATAL VITAMINS W/ FOLIC ACID TABLET (FP) PO SCH (10:46)
[2017-03-19] MEDS: METOPROLOL SUCCINATE 25 MG TAB.SR.24H (FP) PO SCH (10:46)
--- NOTE | 2017-03-19 13:13 | PN ---
Psychiatric Progress Note Vital Signs: Vital Signs Period Temp Pulse Resp BP Sys/Simms Pulse Ox Last 24 Hr 97.8 F 68 16-18 141/90 Date of Session: 03/19/17 Chief Complaint:: porgress update. HPI: Patient is addressing alcohol dependence comrbid alcohol induced sleep disorder. ROS: HTN, Hyperlipidemia and history of surgery for leaking heart valve in September 2016 and peptic ulcer. Current Medications: Active Medications Generic Name Dose Route Start Last Admin Trade Name Freq PRN Reason Stop Dose Admin Acetaminophen 650 mg 03/08/17 22:14 03/18/17 21:35 Tylenol - PO 650 mg Q4H PRN Administration FEVER OR PAIN Al Hydroxide/Mg Hydroxide 30 ml 03/08/17 22:14 Mylanta Oral Suspension - PO Q6H PRN DYSPEPSIA Amiodarone HCl 200 mg 03/09/17 10:00 03/19/17 10:46 Cordarone - PO 200 mg DAILY BETITO Administration Atorvastatin Calcium 40 mg 03/09/17 22:00 03/18/17 21:33 Lipitor - PO 40 mg HS BETITO Administration Diphenhydramine HCl 50 mg 03/08/17 22:14 03/18/17 21:34 Benadryl - PO 50 mg HSMR1 PRN Administration FOR ITCHING Docusate Sodium 300 mg 03/18/17 22:00 03/18/17 21:36 Colace - PO 300 mg HS BETITO Administration Eucalyptus/Menthol/Phenol/Sorbitol 1 each 03/08/17 22:14 Cepastat Lozenge - MM Q4H PRN SORE THROAT Ferrous Sulfate 325 mg 03/18/17 17:30 03/19/17 07:05 Feosol - PO 325 mg TIDCM BETITO Administration Guaifenesin 10 ml 03/08/17 22:14 Robitussin Dm - PO Q6H PRN COUGH Loperamide HCl 4 mg 03/08/17 22:14 Imodium - PO Q6H PRN DIARRHEA Magnesium Hydroxide 30 ml 03/08/17 22:14 Milk Of Magnesia - PO DAILY PRN CONSTIPATION Metoprolol Succinate 25 mg 03/09/17 10:00 03/19/17 10:46 Toprol Xl - PO 25 mg DAILY BETITO Administration Nicotine 14 mg 03/08/17 22:14 Nicoderm Patch - TD DAILY PRN WITHDRAWAL(CONT SUBST) Nicotine Polacrilex 2 mg 03/08/17 22:14 Nicorette Gum - BUC Q2H PRN NICOTINE REPLACEMENT RX Multivit/Folic Acid/Iron 1 tab 03/09/17 10:00 03/19/17 10:46 Vitamins (Sjr) - PO 1 tab DAILY BETITO Administration Pseudoephedrine/Triprolidine 1 combo 03/08/17 22:14 Actifed - PO TID PRN NASAL CONGESTION Thiamine HCl 100 mg 03/09/17 22:00 03/18/17 21:33 Vitamin B1 - PO 100 mg HS BETITO Administration Warfarin Sodium 2 mg 03/16/17 18:00 03/18/17 17:10 Coumadin - PO 2 mg DAILY@1800 BETITO Administration Current Side Effect: No Lab tests ordered: No Lab tests reviewed: Yes Provider note:: Reviewed the chart 's admission note appreciated, patient was seen. Patient adjusted well to the unit, attends groups, he reports he has insomnia and unable tosleep well at nights, he aslo spoke about his alcohol craving and was recommended Campral as a treatment for his urges, side- effetcs and benefits discussed, patient willing to start medications, will add Campral for alcohol addiction and Belsomra for insomnia, psycheducations and supportive therapy provided. Total face to face time:: 30 Mental Status Exam - Mental Status Exam Alert and Oriented to: Time, Place, Person Cognitive Function: Grossly Intact Patient Appearance: Well Groomed Mood: Hopeful Affect: Appropriate, Mood Congruent Patient Behavior: Appropriate, Cooperative Speech Pattern: Clear, Appropriate Voice Loudness: Normal Thought Process: Goal Oriented Thought Disorder: Not Present Hallucinations: Denies Suicidal Ideation: Denies Homicidal Ideation: Denies Insight/Judgement: Fair Sleep: Poorly, Difficulty falling asleep Appetite: Fair Muscle strength/Tone: Normal Gait/Station: Normal Psychiatric Treatment Plan - Problem List (1) Alcohol dependence Current Visit: Yes (2) Alcohol-induced sleep disorder Current Visit: Yes (3) Essential hypertension Current Visit: No (4) History of abdominal surgery Current Visit: No (5) History of peptic ulcer Current Visit: No (6) Hypercholesterolemia Current Visit: No (7) Status post cardiac surgery Current Visit: No
[2017-03-19] MEDS: ACAMPROSATE CALCIUM 333 MG TABLET.DR PO SCH ×2 (15:23→21:46)
[2017-03-19] MEDS: WARFARIN NA 2 MG TABLET (UD) PO SCH (18:06)
[2017-03-19] MEDS: DOCUSATE SODIUM 100 MG CAPSULE (FP) PO SCH (21:45)
[2017-03-19] MEDS: ATORVASTATIN CA 40 MG TABLET (FP) PO SCH (21:46)
[2017-03-19] MEDS: THIAMINE HCL 100 MG TABLET (FP) PO SCH (21:46)
[2017-03-19] MEDS: ACETAMINOPHEN 325 MG TABLET (FP) PO PRN (21:46)
[2017-03-19] MEDS: diphenhydrAMINE HCL 50 MG CAPSULE PO PRN (21:46)
[2017-03-20] MEDS: ACAMPROSATE CALCIUM 333 MG TABLET.DR PO SCH ×3 (06:19→21:26)
[2017-03-20] MEDS: FERROUS SO4 325 MG TABLET (FP) PO SCH ×3 (07:04→17:52)
[2017-03-20 10:31] LABS: INR 2.51 (0.82-1.09); PROTHROMBIN TIME (PATIENT) 27.6 SEC (9.98-11.88)
[2017-03-20] MEDS: METOPROLOL SUCCINATE 25 MG TAB.SR.24H (FP) PO SCH (10:33)
[2017-03-20] MEDS: PRENATAL VITAMINS W/ FOLIC ACID TABLET (FP) PO SCH (10:33)
[2017-03-20] MEDS: AMIODARONE HCL 200 MG TABLET (FP) PO SCH (10:34)
[2017-03-20] MEDS: CYCLOBENZAPRINE HCL 10 MG TABLET (FP) PO SCH ×2 (14:25→21:26)
[2017-03-20] MEDS: LIDOCAINE 5% TOPICAL PATCH TP SCH (14:25)
[2017-03-20] MEDS: WARFARIN NA 2 MG TABLET (UD) PO SCH (17:52)
[2017-03-20] MEDS: DOCUSATE SODIUM 100 MG CAPSULE (FP) PO SCH (21:25)
[2017-03-20] MEDS: THIAMINE HCL 100 MG TABLET (FP) PO SCH (21:26)
[2017-03-20] MEDS: ACETAMINOPHEN 325 MG TABLET (FP) PO PRN (21:27)
[2017-03-20] MEDS: ATORVASTATIN CA 40 MG TABLET (FP) PO SCH (21:28)
[2017-03-20] MEDS: LIDOCAINE PATCH REMOVAL MC SCH (21:29)
[2017-03-20] MEDS: SUVOREXANT 10 MG TABLET PO PRN (21:29)
[2017-03-21] MEDS: CYCLOBENZAPRINE HCL 10 MG TABLET (FP) PO SCH ×3 (06:36→21:27)
[2017-03-21] MEDS: ACAMPROSATE CALCIUM 333 MG TABLET.DR PO SCH ×3 (06:36→21:27)
[2017-03-21] MEDS: FERROUS SO4 325 MG TABLET (FP) PO SCH ×3 (07:11→17:08)
[2017-03-21] MEDS: METOPROLOL SUCCINATE 25 MG TAB.SR.24H (FP) PO SCH (10:20)
[2017-03-21] MEDS: AMIODARONE HCL 200 MG TABLET (FP) PO SCH (10:20)
[2017-03-21] MEDS: LIDOCAINE 5% TOPICAL PATCH TP SCH (10:20)
[2017-03-21] MEDS: PRENATAL VITAMINS W/ FOLIC ACID TABLET (FP) PO SCH (10:20)
[2017-03-21] MEDS: WARFARIN NA 2 MG TABLET (UD) PO SCH (17:08)
[2017-03-21] MEDS: ATORVASTATIN CA 40 MG TABLET (FP) PO SCH (21:26)
[2017-03-21] MEDS: DOCUSATE SODIUM 100 MG CAPSULE (FP) PO SCH (21:26)
[2017-03-21] MEDS: LIDOCAINE PATCH REMOVAL MC SCH (21:27)
[2017-03-21] MEDS: SUVOREXANT 10 MG TABLET PO PRN (21:28)
[2017-03-21] MEDS: THIAMINE HCL 100 MG TABLET (FP) PO SCH (21:31)
[2017-03-22] MEDS: guaiFENesin/D-METHORPHAN HB 10 ML UNIT-DOSE CUPS PO PRN ×3 (03:10→21:29)
[2017-03-22] MEDS: MENTHOL/PHENOL 1 EACH UD MM PRN ×4 (03:10→19:10)
[2017-03-22] MEDS: ACAMPROSATE CALCIUM 333 MG TABLET.DR PO SCH ×3 (06:49→21:27)
[2017-03-22] MEDS: CYCLOBENZAPRINE HCL 10 MG TABLET (FP) PO SCH ×3 (06:49→21:27)
[2017-03-22] MEDS: ACETAMINOPHEN 325 MG TABLET (FP) PO PRN ×3 (06:50→21:28)
[2017-03-22] MEDS: FERROUS SO4 325 MG TABLET (FP) PO SCH ×3 (07:33→17:48)
--- NOTE | 2017-03-22 10:18 | PN ---
[facility] Progress Note (SOAP) Subjective: c/o sore throat, low back pain unrelieve by current medication Objective: 03/22/17 10:16 Vital Signs - 8 hr 03/22/17 07:36 Temperature 98.1 F Pulse Rate 71 Respiratory 16 Rate Blood Pressure 165/74 Laboratory Tests 03/09/17 03/09/17 03/14/17 08:50 08:50 08:30 WBC RBC Hgb Hct MCV MCH MCHC RDW Plt Count MPV Neutrophils % Lymphocytes % Monocytes % Eosinophils % Basophils % PT with INR 20.30 H 18.40 H INR 1.82 H 1.66 H HIV 1&2 Antibody Screen Negative HIV P24 Antigen Negative 03/15/17 03/16/17 03/19/17 07:00 06:00 08:40 WBC RBC Hgb Hct MCV MCH MCHC RDW Plt Count MPV Neutrophils % Lymphocytes % Monocytes % Eosinophils % Basophils % PT with INR 20.90 H 38.20 H 35.70 H INR 1.88 H 3.39 H D 3.25 H HIV 1&2 Antibody Screen HIV P24 Antigen 03/19/17 03/20/17 08:40 07:30 WBC 3.9 L RBC 3.11 L Hgb 9.3 L Hct 29.9 L MCV 96.2 H MCH 29.9 MCHC 31.1 L RDW 24.9 H Plt Count 156 D MPV 11.2 H Neutrophils % 52.2 Lymphocytes % 23.6 Monocytes % 20.2 H Eosinophils % 1.4 Basophils % 2.6 H PT with INR 27.60 H INR 2.51 H HIV 1&2 Antibody Screen HIV P24 Antigen anemia, elevated INR Assessment: 03/22/17 10:16 viral infection throat, no white patches, no fever. no LN tender back musculature Plan: viral pharyngitis, fluids, tyleno and cough medicaine chronic low back pain add neurontin, anemia mvi and iron pills - no NSAOIDS bvecause of risk of bleeding
[2017-03-22] MEDS: METOPROLOL SUCCINATE 25 MG TAB.SR.24H (FP) PO SCH (10:19)
[2017-03-22] MEDS: LIDOCAINE 5% TOPICAL PATCH TP SCH (10:19)
[2017-03-22] MEDS: AMIODARONE HCL 200 MG TABLET (FP) PO SCH (10:19)
[2017-03-22] MEDS: PRENATAL VITAMINS W/ FOLIC ACID TABLET (FP) PO SCH (10:19)
[2017-03-22] MEDS: GABAPENTIN 100 MG CAPSULE (FP) PO SCH ×2 (14:23→21:27)
[2017-03-22] MEDS: WARFARIN NA 2 MG TABLET (UD) PO SCH (17:48)
[2017-03-22] MEDS: DOCUSATE SODIUM 100 MG CAPSULE (FP) PO SCH (21:27)
[2017-03-22] MEDS: LIDOCAINE PATCH REMOVAL MC SCH (21:27)
[2017-03-22] MEDS: ATORVASTATIN CA 40 MG TABLET (FP) PO SCH (21:27)
[2017-03-22] MEDS: THIAMINE HCL 100 MG TABLET (FP) PO SCH (21:27)
[2017-03-23] MEDS: GABAPENTIN 100 MG CAPSULE (FP) PO SCH ×3 (07:00→21:20)
[2017-03-23] MEDS: CYCLOBENZAPRINE HCL 10 MG TABLET (FP) PO SCH ×3 (07:00→21:20)
[2017-03-23] MEDS: ACAMPROSATE CALCIUM 333 MG TABLET.DR PO SCH ×3 (07:00→21:20)
[2017-03-23] MEDS: FERROUS SO4 325 MG TABLET (FP) PO SCH ×3 (07:01→17:14)
[2017-03-23] MEDS ORDERED: WARFARIN NA 2 MG TABLET (UD) PO SCH ×2 (10:00→18:00)
[2017-03-23] MEDS: METOPROLOL SUCCINATE 25 MG TAB.SR.24H (FP) PO SCH (10:41)
[2017-03-23] MEDS: AMIODARONE HCL 200 MG TABLET (FP) PO SCH (10:41)
[2017-03-23] MEDS: PRENATAL VITAMINS W/ FOLIC ACID TABLET (FP) PO SCH (10:41)
[2017-03-23] MEDS: LIDOCAINE 5% TOPICAL PATCH TP SCH (10:42)
[2017-03-23] MEDS: guaiFENesin/D-METHORPHAN HB 10 ML UNIT-DOSE CUPS PO PRN ×2 (10:43→21:22)
[2017-03-23] MEDS: WARFARIN NA 2 MG TABLET (UD) PO SCH (17:14)
[2017-03-23] MEDS: DOCUSATE SODIUM 100 MG CAPSULE (FP) PO SCH (21:20)
[2017-03-23] MEDS: ATORVASTATIN CA 40 MG TABLET (FP) PO SCH (21:20)
[2017-03-23] MEDS: THIAMINE HCL 100 MG TABLET (FP) PO SCH (21:20)
[2017-03-23] MEDS: LIDOCAINE PATCH REMOVAL MC SCH (21:21)
[2017-03-23] MEDS: ACETAMINOPHEN 325 MG TABLET (FP) PO PRN (21:22)
[2017-03-23] MEDS: MENTHOL/PHENOL 1 EACH UD MM PRN (21:23)
[2017-03-24] MEDS: SUVOREXANT 10 MG TABLET PO PRN ×2 (00:10→21:24)
[2017-03-24] MEDS: CYCLOBENZAPRINE HCL 10 MG TABLET (FP) PO SCH ×3 (06:57→21:22)
[2017-03-24] MEDS: ACAMPROSATE CALCIUM 333 MG TABLET.DR PO SCH ×3 (06:57→21:22)
[2017-03-24] MEDS: GABAPENTIN 100 MG CAPSULE (FP) PO SCH ×3 (06:57→21:22)
[2017-03-24] MEDS: guaiFENesin/D-METHORPHAN HB 10 ML UNIT-DOSE CUPS PO PRN ×2 (07:00→21:22)
[2017-03-24] MEDS: ACETAMINOPHEN 325 MG TABLET (FP) PO PRN ×2 (07:00→21:22)
[2017-03-24] MEDS: MENTHOL/PHENOL 1 EACH UD MM PRN ×2 (07:01→21:23)
[2017-03-24] MEDS: FERROUS SO4 325 MG TABLET (FP) PO SCH ×3 (07:07→17:09)
[2017-03-24] MEDS: PRENATAL VITAMINS W/ FOLIC ACID TABLET (FP) PO SCH (10:04)
[2017-03-24] MEDS: LIDOCAINE 5% TOPICAL PATCH TP SCH (10:04)
[2017-03-24] MEDS: METOPROLOL SUCCINATE 25 MG TAB.SR.24H (FP) PO SCH (10:04)
[2017-03-24] MEDS: AMIODARONE HCL 200 MG TABLET (FP) PO SCH (10:04)
[2017-03-24] MEDS: WARFARIN NA 2 MG TABLET (UD) PO SCH (17:09)
[2017-03-24] MEDS: DOCUSATE SODIUM 100 MG CAPSULE (FP) PO SCH (21:22)
[2017-03-24] MEDS: THIAMINE HCL 100 MG TABLET (FP) PO SCH (21:22)
[2017-03-24] MEDS: ATORVASTATIN CA 40 MG TABLET (FP) PO SCH (21:22)
[2017-03-24] MEDS: LIDOCAINE PATCH REMOVAL MC SCH (21:23)
[2017-03-25] MEDS: CYCLOBENZAPRINE HCL 10 MG TABLET (FP) PO SCH ×3 (06:28→21:39)
[2017-03-25] MEDS: ACAMPROSATE CALCIUM 333 MG TABLET.DR PO SCH ×3 (06:28→21:39)
[2017-03-25] MEDS: GABAPENTIN 100 MG CAPSULE (FP) PO SCH ×3 (06:28→21:39)
[2017-03-25] MEDS: FERROUS SO4 325 MG TABLET (FP) PO SCH ×3 (07:05→17:02)
[2017-03-25] MEDS: METOPROLOL SUCCINATE 25 MG TAB.SR.24H (FP) PO SCH (10:07)
[2017-03-25] MEDS: LIDOCAINE 5% TOPICAL PATCH TP SCH (10:07)
[2017-03-25] MEDS: AMIODARONE HCL 200 MG TABLET (FP) PO SCH (10:07)
[2017-03-25] MEDS: PRENATAL VITAMINS W/ FOLIC ACID TABLET (FP) PO SCH (10:07)
[2017-03-25] MEDS: ACETAMINOPHEN 325 MG TABLET (FP) PO PRN ×2 (10:08→21:41)
[2017-03-25] MEDS: WARFARIN NA 2 MG TABLET (UD) PO SCH (17:03)
[2017-03-25] MEDS: ATORVASTATIN CA 40 MG TABLET (FP) PO SCH (21:39)
[2017-03-25] MEDS: DOCUSATE SODIUM 100 MG CAPSULE (FP) PO SCH (21:39)
[2017-03-25] MEDS: THIAMINE HCL 100 MG TABLET (FP) PO SCH (21:39)
[2017-03-25] MEDS: LIDOCAINE PATCH REMOVAL MC SCH (21:40)
[2017-03-26] MEDS: GABAPENTIN 100 MG CAPSULE (FP) PO SCH ×3 (06:17→21:25)
[2017-03-26] MEDS: ACAMPROSATE CALCIUM 333 MG TABLET.DR PO SCH ×3 (06:17→21:25)
[2017-03-26] MEDS: CYCLOBENZAPRINE HCL 10 MG TABLET (FP) PO SCH ×3 (06:17→21:25)
[2017-03-26] MEDS: FERROUS SO4 325 MG TABLET (FP) PO SCH ×3 (07:44→17:03)
[2017-03-26] MEDS: METOPROLOL SUCCINATE 25 MG TAB.SR.24H (FP) PO SCH (09:48)
[2017-03-26] MEDS: AMIODARONE HCL 200 MG TABLET (FP) PO SCH (09:48)
[2017-03-26] MEDS: LIDOCAINE 5% TOPICAL PATCH TP SCH (09:48)
[2017-03-26] MEDS: PRENATAL VITAMINS W/ FOLIC ACID TABLET (FP) PO SCH (09:48)
[2017-03-26] MEDS: ACETAMINOPHEN 325 MG TABLET (FP) PO PRN ×2 (09:49→21:26)
[2017-03-26] MEDS: WARFARIN NA 2 MG TABLET (UD) PO SCH (17:03)
[2017-03-26] MEDS: ATORVASTATIN CA 40 MG TABLET (FP) PO SCH (21:25)
[2017-03-26] MEDS: THIAMINE HCL 100 MG TABLET (FP) PO SCH (21:25)
[2017-03-26] MEDS: LIDOCAINE PATCH REMOVAL MC SCH (21:25)
[2017-03-26] MEDS: DOCUSATE SODIUM 100 MG CAPSULE (FP) PO SCH (21:25)
[2017-03-27] MEDS: ACAMPROSATE CALCIUM 333 MG TABLET.DR PO SCH ×3 (06:56→21:26)
[2017-03-27] MEDS: GABAPENTIN 100 MG CAPSULE (FP) PO SCH ×3 (06:57→21:26)
[2017-03-27] MEDS: CYCLOBENZAPRINE HCL 10 MG TABLET (FP) PO SCH ×3 (06:57→21:26)
[2017-03-27] MEDS: FERROUS SO4 325 MG TABLET (FP) PO SCH ×3 (07:42→17:06)
[2017-03-27] MEDS: METOPROLOL SUCCINATE 25 MG TAB.SR.24H (FP) PO SCH (10:15)
[2017-03-27] MEDS: LIDOCAINE 5% TOPICAL PATCH TP SCH (10:15)
[2017-03-27] MEDS: PRENATAL VITAMINS W/ FOLIC ACID TABLET (FP) PO SCH (10:15)
[2017-03-27] MEDS: AMIODARONE HCL 200 MG TABLET (FP) PO SCH (10:15)
[2017-03-27] MEDS: ACETAMINOPHEN 325 MG TABLET (FP) PO PRN ×2 (10:16→21:28)
[2017-03-27] MEDS: WARFARIN NA 2 MG TABLET (UD) PO SCH (17:06)
[2017-03-27] MEDS: DOCUSATE SODIUM 100 MG CAPSULE (FP) PO SCH (21:26)
[2017-03-27] MEDS: ATORVASTATIN CA 40 MG TABLET (FP) PO SCH (21:26)
[2017-03-27] MEDS: THIAMINE HCL 100 MG TABLET (FP) PO SCH (21:26)
[2017-03-27] MEDS: LIDOCAINE PATCH REMOVAL MC SCH (21:26)
[2017-03-28] MEDS: GABAPENTIN 100 MG CAPSULE (FP) PO SCH ×3 (06:29→21:28)
[2017-03-28] MEDS: ACAMPROSATE CALCIUM 333 MG TABLET.DR PO SCH ×3 (06:29→21:28)
[2017-03-28] MEDS: CYCLOBENZAPRINE HCL 10 MG TABLET (FP) PO SCH ×3 (06:29→21:28)
[2017-03-28] MEDS: FERROUS SO4 325 MG TABLET (FP) PO SCH ×3 (07:26→17:49)
[2017-03-28] MEDS: AMIODARONE HCL 200 MG TABLET (FP) PO SCH (09:52)
[2017-03-28] MEDS: METOPROLOL SUCCINATE 25 MG TAB.SR.24H (FP) PO SCH (09:52)
[2017-03-28] MEDS: PRENATAL VITAMINS W/ FOLIC ACID TABLET (FP) PO SCH (09:52)
[2017-03-28] MEDS: LIDOCAINE 5% TOPICAL PATCH TP SCH (09:53)
[2017-03-28] MEDS: MENTHOL/PHENOL 1 EACH UD MM PRN (09:54)
[2017-03-28] MEDS: ACETAMINOPHEN 325 MG TABLET (FP) PO PRN ×2 (09:54→21:31)
--- NOTE | 2017-03-28 12:25 | PN ---
[facility] Progress Note Note: co ongoing constipation, miralax added
[2017-03-28] MEDS: WARFARIN NA 2 MG TABLET (UD) PO SCH (17:49)
[2017-03-28] MEDS: DOCUSATE SODIUM 100 MG CAPSULE (FP) PO SCH (21:28)
[2017-03-28] MEDS: ATORVASTATIN CA 40 MG TABLET (FP) PO SCH (21:28)
[2017-03-28] MEDS: THIAMINE HCL 100 MG TABLET (FP) PO SCH (21:29)
[2017-03-28] MEDS: LIDOCAINE PATCH REMOVAL MC SCH (21:29)
[2017-03-29] MEDS ORDERED: diphenhydrAMINE HCL 50 MG CAPSULE PO PRN (01:20)
[2017-03-29] MEDS: CYCLOBENZAPRINE HCL 10 MG TABLET (FP) PO SCH ×3 (05:50→21:40)
[2017-03-29] MEDS: ACAMPROSATE CALCIUM 333 MG TABLET.DR PO SCH ×3 (05:50→21:39)
[2017-03-29] MEDS: GABAPENTIN 100 MG CAPSULE (FP) PO SCH ×3 (05:50→21:39)
[2017-03-29] MEDS: FERROUS SO4 325 MG TABLET (FP) PO SCH ×3 (07:34→17:27)
[2017-03-29] MEDS: METOPROLOL SUCCINATE 25 MG TAB.SR.24H (FP) PO SCH (10:26)
[2017-03-29] MEDS: AMIODARONE HCL 200 MG TABLET (FP) PO SCH (10:26)
[2017-03-29] MEDS: PRENATAL VITAMINS W/ FOLIC ACID TABLET (FP) PO SCH (10:27)
[2017-03-29] MEDS: POLYETHYLENE GLYCOL 3350 119 GM BTL PO SCH (10:28)
[2017-03-29] MEDS: ACETAMINOPHEN 325 MG TABLET (FP) PO PRN ×2 (10:30→21:41)
[2017-03-29] MEDS: LIDOCAINE 5% TOPICAL PATCH TP SCH (10:58)
[2017-03-29] MEDS: WARFARIN NA 2 MG TABLET (UD) PO SCH (17:30)
[2017-03-29] MEDS: LIDOCAINE PATCH REMOVAL MC SCH (21:40)
[2017-03-29] MEDS: ATORVASTATIN CA 40 MG TABLET (FP) PO SCH (21:40)
[2017-03-29] MEDS: DOCUSATE SODIUM 100 MG CAPSULE (FP) PO SCH (21:40)
[2017-03-29] MEDS: THIAMINE HCL 100 MG TABLET (FP) PO SCH (21:40)
[2017-03-29] MEDS: MENTHOL/PHENOL 1 EACH UD MM PRN (21:43)
[2017-03-29] MEDS ORDERED: diphenhydrAMINE HCL 25 MG CAPSULE (FP) PO SCH (22:00)
[2017-03-30] MEDS: ACAMPROSATE CALCIUM 333 MG TABLET.DR PO SCH ×3 (06:26→21:26)
[2017-03-30] MEDS: GABAPENTIN 100 MG CAPSULE (FP) PO SCH ×3 (06:26→21:26)
[2017-03-30] MEDS: CYCLOBENZAPRINE HCL 10 MG TABLET (FP) PO SCH ×3 (06:26→21:26)
[2017-03-30] MEDS: FERROUS SO4 325 MG TABLET (FP) PO SCH ×3 (07:01→17:08)
[2017-03-30] MEDS: PRENATAL VITAMINS W/ FOLIC ACID TABLET (FP) PO SCH (09:58)
[2017-03-30] MEDS: AMIODARONE HCL 200 MG TABLET (FP) PO SCH (09:59)
[2017-03-30] MEDS: METOPROLOL SUCCINATE 25 MG TAB.SR.24H (FP) PO SCH (10:00)
[2017-03-30] MEDS: ACETAMINOPHEN 325 MG TABLET (FP) PO PRN ×2 (10:01→21:28)
[2017-03-30] MEDS: POLYETHYLENE GLYCOL 3350 119 GM BTL PO SCH (10:02)
[2017-03-30] MEDS: LIDOCAINE 5% TOPICAL PATCH TP SCH (10:04)
[2017-03-30] MEDS: WARFARIN NA 2 MG TABLET (UD) PO SCH (17:08)
[2017-03-30] MEDS: ATORVASTATIN CA 40 MG TABLET (FP) PO SCH (21:26)
[2017-03-30] MEDS: DOCUSATE SODIUM 100 MG CAPSULE (FP) PO SCH (21:26)
[2017-03-30] MEDS: LIDOCAINE PATCH REMOVAL MC SCH (21:27)
[2017-03-30] MEDS: THIAMINE HCL 100 MG TABLET (FP) PO SCH (21:27)
[2017-03-31] MEDS: CYCLOBENZAPRINE HCL 10 MG TABLET (FP) PO SCH ×3 (06:18→21:27)
[2017-03-31] MEDS: GABAPENTIN 100 MG CAPSULE (FP) PO SCH ×3 (06:18→21:26)
[2017-03-31] MEDS: ACAMPROSATE CALCIUM 333 MG TABLET.DR PO SCH ×3 (06:18→21:26)
[2017-03-31] MEDS: HYDROCORTISONE 1% TOPICAL CREAM 30 GM TUBE TP PRN (06:21)
[2017-03-31] MEDS: FERROUS SO4 325 MG TABLET (FP) PO SCH ×3 (07:04→17:46)
[2017-03-31] MEDS: METOPROLOL SUCCINATE 25 MG TAB.SR.24H (FP) PO SCH (10:24)
[2017-03-31] MEDS: PRENATAL VITAMINS W/ FOLIC ACID TABLET (FP) PO SCH (10:24)
[2017-03-31] MEDS: LIDOCAINE 5% TOPICAL PATCH TP SCH (10:24)
[2017-03-31] MEDS: AMIODARONE HCL 200 MG TABLET (FP) PO SCH (10:24)
[2017-03-31] MEDS: POLYETHYLENE GLYCOL 3350 119 GM BTL PO SCH (10:25)
[2017-03-31] MEDS: ACETAMINOPHEN 325 MG TABLET (FP) PO PRN ×2 (10:27→21:28)
[2017-03-31] MEDS: MENTHOL/PHENOL 1 EACH UD MM PRN (13:06)
[2017-03-31] MEDS: WARFARIN NA 2 MG TABLET (UD) PO SCH (17:46)
[2017-03-31] MEDS: DOCUSATE SODIUM 100 MG CAPSULE (FP) PO SCH (21:27)
[2017-03-31] MEDS: THIAMINE HCL 100 MG TABLET (FP) PO SCH (21:27)
[2017-03-31] MEDS: ATORVASTATIN CA 40 MG TABLET (FP) PO SCH (21:27)
[2017-03-31] MEDS: LIDOCAINE PATCH REMOVAL MC SCH (21:29)
[2017-04-01] MEDS: HYDROCORTISONE 1% TOPICAL CREAM 30 GM TUBE TP PRN (05:43)
[2017-04-01] MEDS: GABAPENTIN 100 MG CAPSULE (FP) PO SCH (05:43)
[2017-04-01] MEDS: CYCLOBENZAPRINE HCL 10 MG TABLET (FP) PO SCH (05:43)
[2017-04-01] MEDS: ACAMPROSATE CALCIUM 333 MG TABLET.DR PO SCH (05:44)
[2017-04-01 07:04] VITALS: TEMP 97.9
[2017-04-01] MEDS: FERROUS SO4 325 MG TABLET (FP) PO SCH (07:26)
--- NOTE | 2017-04-01 09:40 | PN ---
Psychiatric Progress Note Vital Signs: Vital Signs Period Temp Pulse Resp BP Sys/Simms Pulse Ox Last 24 Hr 97.9 F 78 16-18 126/81 Date of Session: 04/01/17 Chief Complaint:: discharge visit HPI: Patient has addressed alcohol dependence comrbid alcohol induced sleep disorder. ROS: HTN, Hyperlipidemia medically managed. Current Medications: Active Medications Generic Name Dose Route Start Last Admin Trade Name Freq PRN Reason Stop Dose Admin Acamprosate 666 mg 03/19/17 14:47 04/01/17 05:44 Campral - PO 666 mg TID BETITO Administration Acetaminophen 650 mg 03/08/17 22:14 03/31/17 21:28 Tylenol - PO 650 mg Q4H PRN Administration FEVER OR PAIN Al Hydroxide/Mg Hydroxide 30 ml 03/08/17 22:14 03/28/17 21:32 Mylanta Oral Suspension - PO 30 ml Q6H PRN Administration DYSPEPSIA Amiodarone HCl 200 mg 03/09/17 10:00 03/31/17 10:24 Cordarone - PO 200 mg DAILY BETITO Administration Atorvastatin Calcium 40 mg 03/09/17 22:00 03/31/17 21:27 Lipitor - PO 40 mg HS BETITO Administration Cyclobenzaprine HCl 10 mg 03/20/17 14:15 04/01/17 05:43 Flexeril - PO 10 mg TID BETITO Administration Diphenhydramine HCl 50 mg 03/29/17 01:20 Benadryl - PO HS PRN INSOMNIA Docusate Sodium 300 mg 03/18/17 22:00 03/31/17 21:27 Colace - PO 300 mg HS BETITO Administration Eucalyptus/Menthol/Phenol/Sorbitol 1 each 03/08/17 22:14 03/31/17 13:06 Cepastat Lozenge - MM 1 each Q4H PRN Administration SORE THROAT Ferrous Sulfate 325 mg 03/18/17 17:30 04/01/17 07:26 Feosol - PO 325 mg TIDCM BETITO Administration Gabapentin 100 mg 03/22/17 14:00 04/01/17 05:43 Neurontin - PO 100 mg TID BETITO Administration Guaifenesin 10 ml 03/08/17 22:14 03/24/17 21:22 Robitussin Dm - PO 10 ml Q6H PRN Administration COUGH Hydrocortisone 1 applic 03/30/17 07:05 04/01/17 05:43 Hytone 1% Cream - TP 1 applic TID PRN Administration FOR ITCHING Lidocaine 1 patch 03/20/17 14:15 03/31/17 10:24 Lidoderm Patch - TP Not Given DAILY BETITO Loperamide HCl 4 mg 03/08/17 22:14 Imodium - PO Q6H PRN DIARRHEA Magnesium Hydroxide 30 ml 03/08/17 22:14 03/28/17 06:31 Milk Of Magnesia - PO 30 ml DAILY PRN Administration CONSTIPATION Metoprolol Succinate 25 mg 03/09/17 10:00 03/31/17 10:24 Toprol Xl - PO 25 mg DAILY BETITO Administration Miscellaneous 1 each 03/20/17 22:00 03/31/17 21:29 Lidoderm Patch Removal MC 1 each DAILY@2200 BETITO Administration Nicotine 14 mg 03/08/17 22:14 Nicoderm Patch - TD DAILY PRN WITHDRAWAL(CONT SUBST) Nicotine Polacrilex 2 mg 03/08/17 22:14 Nicorette Gum - BUC Q2H PRN NICOTINE REPLACEMENT RX Polyethylene Glycol 17 gm 03/29/17 10:00 03/31/17 10:25 Miralax (For Daily Use) - PO 17 gm DAILY BETITO Administration Multivit/Folic Acid/Iron 1 tab 03/09/17 10:00 03/31/17 10:24 Vitamins (Sjr) - PO 1 tab DAILY BETITO Administration Pseudoephedrine/Triprolidine 1 combo 03/08/17 22:14 Actifed - PO TID PRN NASAL CONGESTION Thiamine HCl 100 mg 03/09/17 22:00 03/31/17 21:27 Vitamin B1 - PO 100 mg HS BETITO Administration Warfarin Sodium 2 mg 03/22/17 18:00 03/31/17 17:46 Coumadin - PO 2 mg DAILY@1800 BETITO Administration Current Side Effect: No Lab tests ordered: No Lab tests reviewed: Yes Provider note:: Patient has completed today his treatment and met his goals, will continue to address his issues at [facility] outpatient treatment program.He identified his relapse triggres, focused on importance of changing attitudes and utilize all supports available to prevent relapses. Medications (Campral) well tolerated, reports no cravings for alcohol, scriprs provided, patient was encouraged to continue maintain abstinence is stable for discharge today. Total face to face time:: 35 Mental Status Exam - Mental Status Exam Alert and Oriented to: Time, Place, Person Cognitive Function: Good Patient Appearance: Well Groomed Mood: Hopeful Affect: Appropriate, Mood Congruent Patient Behavior: Appropriate, Cooperative Speech Pattern: Clear, Appropriate Voice Loudness: Normal Thought Process: Intact, Goal Oriented Thought Disorder: Not Present Hallucinations: Denies Suicidal Ideation: Denies Homicidal Ideation: Denies Insight/Judgement: Fair Sleep: Fair Appetite: Fair Muscle strength/Tone: Normal Gait/Station: Normal Psychiatric Treatment Plan - Problem List (1) Alcohol dependence Current Visit: Yes (2) Alcohol-induced sleep disorder Current Visit: Yes (3) Essential hypertension Current Visit: No (4) History of abdominal surgery Current Visit: No (5) History of peptic ulcer Current Visit: No (6) Hypercholesterolemia Current Visit: No (7) Status post cardiac surgery Current Visit: No
[2017-04-01] MEDS: PRENATAL VITAMINS W/ FOLIC ACID TABLET (FP) PO SCH (10:12)
[2017-04-01] MEDS: AMIODARONE HCL 200 MG TABLET (FP) PO SCH (10:12)
[2017-04-01] MEDS: POLYETHYLENE GLYCOL 3350 119 GM BTL PO SCH (10:12)
[2017-04-01] MEDS: ACETAMINOPHEN 325 MG TABLET (FP) PO PRN (10:13)
[2017-04-01] MEDS: LIDOCAINE 5% TOPICAL PATCH TP SCH (10:15)
[2017-04-01] MEDS: METOPROLOL SUCCINATE 25 MG TAB.SR.24H (FP) PO SCH (10:53)
[2017-04-01 12:13] VITALS: BP 146/94; PULSE 89
== END 2017-04-01 12:15 | disposition home or self-care (01) | DRG 772 ==
LOC: YASAS 19:26 → Y5N 19:50
PROVIDERS: ADMIT Psychiatry & Neurology Psychiatry; ATTEND Psychiatry & Neurology Psychiatry
PROC: HZ42ZZZ Group Counseling for Substance Abuse Treatment, Cognitive-Behavioral (ICD-10-PCS; principal; 2017-03-08)
DX: F10.20 Alcohol dependence, uncomplicated (principal); F10.282 Alcohol dependence with alcohol-induced sleep disorder; I10 Essential (primary) hypertension; E78.00 Pure hypercholesterolemia, unspecified; D64.9 Anemia, unspecified; R79.1 Abnormal coagulation profile; B34.9 Viral infection, unspecified; Z87.11 Personal history of peptic ulcer disease
CPT/HCPCS: 36415; 85025; 85610; 87389

== ENCOUNTER 2017-11-28 11:59 | Inpatient (IN) | payer BC ==
[2017-11-28 12:58] VITALS: BMI 20.9
--- NOTE | 2017-11-28 14:03 | HP ---
Admission [facility] Chief Complaint: PATIENT PRESENTS FOR ETOH DEPENDENCE. Allergies/Adverse Reactions: Allergies Allergy/AdvReac Type Severity Reaction Status Date / Time No Known Allergies Allergy Verified 11/28/17 13:07 History of Present Illness: PATIENT PRESENTS FOR ETOH DEPENDENCE. PATIENT RECENTLY ADMITTED IN DETOX AT [facility]. STATES HE WENT TO HOSPITAL SUSTAINING FALL AND INJURING FACE. HOWEVER, PATIENT WAS ADMITTED TO DETOX UNIT. PT DISCHARGED LAST Saturday11/22/17. PATIENT STARTED DRINKING AT AGE 10 YEARS OF AGE. DRINKS UP TO 6 BEERS AND 1-2 SHOTS OF LIQUOR DAILY. PATIENT DENIES ANY SEIZURES FROM ETOH USE/WITHDRAWAL. LAST DETOX WAS HERE AT [facility] 02/2017. PATIENT HAS PMH HTN, HLD, S/P HEART SURGERY IN 2017, DEPRESSION AND ANXIETY. DENIES SI/HI AND SUICIDE ATTEMPTS. LAST DRINK YESTERDAY EVENING. PATIENTS HAS LOVENOX 60MG BID PRESCRIPTION AND BOX OF MEDICATION WITH HIM. HE STATED HIS PCP STARTED HIM ON LOVENOX X 2 WEEKS HE WAS TO GO TO [place] A FEW DAYS AGO AND HE IS NO LONGER ON COUMADIN. PCP IS DR. LEX HERNANDEZ [phone]. 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 DR. HERNANDEZ STATED PATIENT IS NON-COMPLIANT WITH COUMADIN AND LAST INR 1.3 ON 11/26/17. SHE ORDERED LOVENOX 60MG BID HE WAS GOING TO [place] AND SHE WAS UNABLE TO MONITOR INR. MD AGREED THAT WHILE PATIENT IS ADMITTED TO [facility] HE CAN RESUME COUMADIN AND HAVE PT/INR MONITORED. LAST COUMADIN DOSE 2.5MG. WILL ORDER COUMADIN 2MG HS AND REPEAT INR TOMORROW. Exam Limitations: No Limitations - Ebola screening Have you traveled outside of the country in the last 21 days: No Have you had contact with anyone from an Ebola affected area: No Have you been sick,other than usual withdrawal symptoms: No Do you have a fever: No - Review of Systems Constitutional: Night Sweats, Changes in sleep, Unintentional Wgt. Loss EENT: reports: No Symptoms Reported Respiratory: reports: No Symptoms reported Cardiac: reports: No Symptoms Reported GI: reports: Diarrhea, Nausea, Poor Fluid Intake : reports: No Symptoms Reported Musculoskeletal: reports: Back Pain, Joint Pain Integumentary: reports: Sweating Neuro: reports: Headache Endocrine: reports: Unexplained Weight Loss Hematology: reports: No Symptoms Reported Psychiatric: reports: Orientated x3, Anxious, Depressed Patient History - Patient Medical History Hx Anemia: No Hx Asthma: No Hx Chronic Obstructive Pulmonary Disease (COPD): No Hx Cancer: No Hx Cardiac Disorders: Yes Hx Congestive Heart Failure: No Hx Hypertension: Yes Hx Hypercholesterolemia: Yes (ON MED) Hx Pacemaker: No HX Cerebrovascular Accident: No Hx Seizures: No Hx Dementia: No Hx Diabetes: No Hx Gastrointestinal Disorders: Yes Hx Liver Disease: No Hx Genitourinary Disorders: No Hx Sexually Transmitted Disorders: No Hx Renal Disease (ESRD): No Hx Thyroid Disease: No Hx Human Immunodeficiency Virus (HIV): No (01/24) Hx Hepatitis C: No Hx Depression: Yes Hx Suicide Attempt: No Hx Bipolar Disorder: No Hx Schizophrenia: No - Patient Surgical History Past Surgical History: Yes Hx Cardiac Surgery: Yes (S/P SURGERY FOR LEAKING VALVE IN 09/24) Hx Abdominal Surgery: Yes (S/P SURERY FOR PEPTIC ULCER) Anesthesia Reaction: No - PPD History Date: 03/06/17 PPD to be Administered?: No - Smoking Cessation Smoking history: Never smoked Have you smoked in the past 12 months: No If you are a former smoker, when did you quit?: 20 yrs ago. - Substance & Tx. History Hx Alcohol Use: Yes Hx Substance Use: No Substance Use Type: Alcohol Hx Substance Use Treatment: Yes - Substances Abused Alcohol Route: Oral Frequency: Daily Amount used: 6PK BEER Age of first use: 11 Date of Last Use: 11/28/17 Family Disease History - Family Disease History Family Disease History: Diabetes: Mother, Heart Disease: Mother Admission Physical Exam S - Vital Signs Vital Signs: Vital Signs - 24 hr 11/28/17 12:56 Temperature 96.4 F L Pulse Rate 108 H Respiratory 20 Rate Blood Pressure 145/91 - Physical General Appearance: Yes: No Apparent Distress, Appropriately Dressed, Alcohol on Breath, Thin HEENTM: Yes: EOMI, Hearing grossly Normal, Normal ENT Inspection, Normocephalic , Normal Voice, MAURY, Pharynx Normal Respiratory: Yes: Chest Non-Tender, Lungs Clear, Normal Breath Sounds, No Respiratory Distress, No Accessory Muscle Use Neck: Yes: No masses,lesions,Nodules, Supple Breast: Yes: Breast Exam Deferred Cardiology: Yes: Regular Rhythm, Regular Rate, S1, S2 Abdominal: Yes: Normal Bowel Sounds, Non Tender, Soft Genitourinary: Yes: Within Normal Limits Back: Yes: Muscle Spasm Musculoskeletal: Yes: full range of Motion, Gait Steady, Back pain, Muscle Pain Extremities: Yes: Normal Inspection, Normal Range of Motion, Non-Tender Neurological: Yes: Fully Oriented, Alert, Motor Strength 5/5, Depressed Affect Integumentary: Yes: Normal Color, Warm, Other (FACIAL SCABS DUE TO HEALING ABRASION. INTACT AND DRY) Lymphatic: Yes: Within Normal Limits - Diagnostic (1) Depressed affect Current Visit: Yes Status: Suspected (2) Anxiety Current Visit: Yes Status: Suspected (3) Alcohol dependence Current Visit: Yes Status: Acute Qualifiers: Substance use status: uncomplicated Qualified Code(s): F10.20 - Alcohol dependence, uncomplicated (4) Essential hypertension Current Visit: Yes Status: Chronic (5) History of abdominal surgery Current Visit: Yes Status: Resolved (6) History of peptic ulcer Current Visit: Yes Status: Chronic (7) Hypercholesterolemia Current Visit: Yes Status: Chronic (8) Status post cardiac surgery Current Visit: No Status: Resolved Cleared for Admission [facility] - Detox or Rehab Claeared for Rehab Admission: Yes [facility] Breath Alcohol Content Breath Alcohol Content: 0.070 Urine Drug Screen - Results Urine Drug Screen Results: BZO-Benzodiazepines Inpatient Rehab Admission - Initial Determination Are CD services needed?: Yes Free of communicable disease: Yes Not in need of hospitalization: Yes - Rehab Admission Criteria Previous failed treatment: Yes Poor recovery environment: Yes Comorbidities: Yes Lacks judgement: No Patient is meeting Inpatient Rehab admission criteria:: Yes
[2017-11-28] MEDS ORDERED: IBUPROFEN 400 MG TABLET (FP) PO PRN (14:15)
[2017-11-28] MEDS ORDERED: MENTHOL/PHENOL 1 EACH UD MM PRN (14:15)
[2017-11-28] MEDS ORDERED: guaiFENesin/D-METHORPHAN HB 10 ML UNIT-DOSE CUPS PO PRN (14:15)
[2017-11-28] MEDS ORDERED: MAGNESIUM HYDROX 2400MG/30ML ORAL SUSPENSION 30 ML CUP PO PRN (14:15)
[2017-11-28] MEDS ORDERED: MAGNESIUM CITRATE 300 ML BOTTLE PO PRN (14:15)
[2017-11-28] MEDS ORDERED: LOPERAMIDE HCL 2 MG CAPSULE PO PRN (14:15)
[2017-11-28] MEDS ORDERED: MAG HYDROX/AL HYDROX/SIMETH 30 ML UNIT-DOSE CUP PO PRN (14:15)
[2017-11-28] MEDS ORDERED: P-EPHED 60MG/TRIPROLIDI 2.5MG TABLET PO PRN (14:15)
[2017-11-28] MEDS: WARFARIN NA 2 MG TABLET (UD) PO SCH (17:03)
[2017-11-28] MEDS ORDERED: WARFARIN NA 2 MG TABLET (UD) PO ONE (18:00)
[2017-11-28] MEDS: THIAMINE HCL 100 MG TABLET (FP) PO SCH (21:40)
[2017-11-28] MEDS: RANITIDINE HCL 150 MG TABLET (FP) PO SCH (21:40)
[2017-11-28] MEDS: ATORVASTATIN CA 40 MG TABLET (FP) PO SCH (21:40)
[2017-11-28] MEDS ORDERED: CLOPIDOGREL BISULFATE 75 MG TABLET (FP) PO SCH (22:00)
[2017-11-28 23:21] LABS: URINE APPEARANCE CLEAR; URINE BILIRUBIN NEGATIVE (<2.0 mg/dL); URINE COLOR COLORLESS; URINE GLUCOSE (UA) NEGATIVE (NEGATIVE); URINE KETONE NEGATIVE (NEGATIVE); URINE LEUK ESTERASE NEGATIVE (NEGATIVE); URINE NITRITE NEGATIVE (NEGATIVE); URINE PROTEIN NEGATIVE (NEGATIVE); URINE UROBILINOGEN NEGATIVE mg/dL (0.2-1.0)
--- NOTE | 2017-11-29 06:14 | HP ---
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 Psychiatric History: Denies history of previous psychiatric treatment Physical/Sexual Abuse/Trauma History: Denies history of verbal, physical or sexual abuse as well as DV relationship. No service Additional Comment: Reports history of a few previous misdemeanor arrests. No probation currently Vital Signs: Vital Signs - 24 hr 11/28/17 11/28/17 11/29/17 12:56 18:00 00:30 Temperature 96.4 F L 97.8 F Pulse Rate 108 H 95 H Respiratory 20 19 18 Rate Blood Pressure 145/91 131/87 11/29/17 03:30 Temperature Pulse Rate Respiratory 18 Rate Blood Pressure Allergies/Adverse Reactions: Allergies Allergy/AdvReac Type Severity Reaction Status Date / Time No Known Allergies Allergy Verified 11/28/17 13:07 Date of last physical exam: 11/28/17 Concur with the findings of this exam: Yes - Substance Abuse/Tx History Hx Alcohol Use: Yes Hx Substance Use: No Substance Use Type: Alcohol (Started drinking alcohol at age 11, consumes a 6pk of beer daily. Last drank on 11/28/17) Hx Substance Use Treatment: Yes (One previous inpt detox & one inpt rehab admission @ [facility]) Mental Status Exam - Mental Status Exam Alert and Oriented to: Place, Person Cognitive Function: Fair Patient Appearance: Well Groomed Mood: Depressed (mildly) Affect: Appropriate Patient Behavior: Cooperative Speech Pattern: Clear Voice Loudness: Normal Thought Process: Intact, Goal Oriented Hallucinations: Denies Suicidal Ideation: Denies Homicidal Ideation: Denies Insight/Judgement: Fair Sleep: Poorly Appetite: Poor Muscle strength/Tone: Normal Gait/Station: Normal Psychiatric Findings - Problem List ([place] 1, 2,3) (1) Alcohol dependence Current Visit: Yes Status: Acute Qualifiers: Substance use status: uncomplicated Qualified Code(s): F10.20 - Alcohol dependence, uncomplicated (2) Alcohol-induced mood disorder Current Visit: Yes Status: Acute (3) Alcohol-induced sleep disorder Current Visit: Yes Status: Acute (4) Essential hypertension Current Visit: Yes Status: Chronic (5) Hypercholesterolemia Current Visit: Yes Status: Chronic (6) History of peptic ulcer Current Visit: Yes Status: Chronic (7) History of abdominal surgery Current Visit: Yes Status: Resolved (8) Status post cardiac surgery Current Visit: No Status: Resolved - Initial Treatment Plan Initial Treatment Plan: 1) Start Melatinin 5 mg po HS prn for insomnia. 2) Momitor progress
--- NOTE | 2017-11-29 09:04 | EKG ---
Test Reason : Blood Pressure : / mmHG Vent. Rate : 109 BPM Atrial Rate : 109 BPM P-R Int : 168 ms QRS Dur : 082 ms QT Int : 360 ms P-R-T Axes : 059 -10 137 degrees QTc Int : 484 ms SINUS TACHYCARDIA WITH OCCASIONAL PREMATURE VENTRICULAR COMPLEXES SEPTAL INFARCT , AGE UNDETERMINED INFERIOR INFARCT , AGE UNDETERMINED T WAVE ABNORMALITY, CONSIDER LATERAL ISCHEMIA ABNORMAL ECG Confirmed by ROSA LEIVA MD ([id number]) on 11/29/2017 9:04:30 AM Referred By: Confirmed By:ROSA LEIVA MD
[2017-11-29 09:49] LABS: HEMATOCRIT 28.9 % (35.4-49); HEMOGLOBIN 9.4 GM/dL (11.7-16.9); MCH 34.4 pg (25.7-33.7); MCHC 32.4 g/dl (32.0-35.9); MEAN CELL VOLUME 106.3 fl (80-96); MEAN PLT VOLUME 10.1 fl (7.5-11.1); PLATELET COUNT 220 K/MM3 (134-434); RBC 2.72 M/mm3 (4.00-5.60); RDW 14.4 % (11.9-15.9); WHITE BLOOD COUNT 4.1 K/mm3 (4.0-10.0)
[2017-11-29 09:57] LABS: INR 1.14 (0.82-1.09); PROTHROMBIN TIME (PATIENT) 12.9 SEC (9.7-13.0)
[2017-11-29] MEDS ORDERED: ASPIRIN 81 MG CHEWABLE TABLETS PO SCH (10:00)
[2017-11-29] MEDS: metoPROLOL SUCCINATE 25 MG TAB.SR.24H (FP) PO SCH (10:39)
[2017-11-29] MEDS: RANITIDINE HCL 150 MG TABLET (FP) PO SCH ×2 (10:39→22:55)
[2017-11-29] MEDS: PRENATAL VITAMINS W/ FOLIC ACID TABLET (FP) PO SCH (10:39)
[2017-11-29 11:00] LABS: ALBUMIN 3.2 g/dl (3.4-5.0); ANION GAP 12 (8-16); BLOOD UREA NITROGEN 8 mg/dL (7-18); CALCIUM 8.1 mg/dL (8.5-10.1); CHLORIDE 105 mmol/L (98-107); CO2 23 mmol/L (21-32); CREATININE 0.7 mg/dL (0.7-1.3); GLUCOSE,RANDOM 106 mg/dL (74-106); SGOT/AST 102 U/L (15-37); SGPT/ALT 39 U/L (12-78); SODIUM 140 mmol/L (136-145)
[2017-11-29 11:02] LABS: ALK PHOS 72 U/L (45-117); BILIRUBIN,TOTAL 0.3 mg/dL (0.2-1.0); TOT PROT 8.2 g/dl (6.4-8.2)
[2017-11-29] MEDS ORDERED: PT OWN MED DRAWER 7, Y5N ONE (16:33)
[2017-11-29] MEDS: WARFARIN NA 2 MG TABLET (UD) PO SCH (18:00)
[2017-11-29] MEDS: THIAMINE HCL 100 MG TABLET (FP) PO SCH (22:55)
[2017-11-29] MEDS: ATORVASTATIN CA 40 MG TABLET (FP) PO SCH (22:56)
[2017-11-29] MEDS: MELATONIN 5 MG TABLETS PO PRN (22:56)
[2017-11-30] MEDS: PRENATAL VITAMINS W/ FOLIC ACID TABLET (FP) PO SCH (10:37)
[2017-11-30] MEDS: RANITIDINE HCL 150 MG TABLET (FP) PO SCH ×2 (10:37→22:02)
[2017-11-30] MEDS: metoPROLOL SUCCINATE 25 MG TAB.SR.24H (FP) PO SCH (10:37)
[2017-11-30] MEDS ORDERED: PT OWN MED DRAWER 7, Y5N ONE (16:37)
[2017-11-30] MEDS: WARFARIN NA 2 MG TABLET (UD) PO SCH (18:00)
[2017-11-30] MEDS: ATORVASTATIN CA 40 MG TABLET (FP) PO SCH (22:02)
[2017-11-30] MEDS: THIAMINE HCL 100 MG TABLET (FP) PO SCH (22:02)
[2017-11-30] MEDS: MELATONIN 5 MG TABLETS PO PRN (22:02)
[2017-12-01] MEDS: RANITIDINE HCL 150 MG TABLET (FP) PO SCH ×2 (10:19→21:57)
[2017-12-01] MEDS: PRENATAL VITAMINS W/ FOLIC ACID TABLET (FP) PO SCH (10:19)
[2017-12-01] MEDS: metoPROLOL SUCCINATE 25 MG TAB.SR.24H (FP) PO SCH (10:19)
--- NOTE | 2017-12-01 13:01 | PN ---
S Progress Note Note: pt fell and has facial abrasions- healing, neosporin ordered- pt wanted to use his own but order is placed for pharmacy to give to pt
[2017-12-01] MEDS: WARFARIN NA 2 MG TABLET (UD) PO SCH (18:04)
[2017-12-01] MEDS: THIAMINE HCL 100 MG TABLET (FP) PO SCH (21:57)
[2017-12-01] MEDS: MELATONIN 5 MG TABLETS PO PRN (21:57)
[2017-12-01] MEDS: ATORVASTATIN CA 40 MG TABLET (FP) PO SCH (21:57)
[2017-12-01] MEDS: NEOMYCIN/POLYMYXIN/BACITRACIN (TRIPLE ANTIBIOTIC) 28 GM OINTMENT TP SCH (22:00)
[2017-12-02] MEDS: metoPROLOL SUCCINATE 25 MG TAB.SR.24H (FP) PO SCH (10:01)
[2017-12-02] MEDS: PRENATAL VITAMINS W/ FOLIC ACID TABLET (FP) PO SCH (10:01)
[2017-12-02] MEDS: RANITIDINE HCL 150 MG TABLET (FP) PO SCH ×2 (10:02→22:06)
[2017-12-02] MEDS: NEOMYCIN/POLYMYXIN/BACITRACIN (TRIPLE ANTIBIOTIC) 28 GM OINTMENT TP SCH ×2 (10:03→22:09)
--- NOTE | 2017-12-02 15:34 | PN ---
S Progress Note Note: INR 1.14. Coumadin 2mg in progress however as per PCP patient non-compliant with coumadin and medication resumed 11/29/17. Will repeat INR in am if still subtherapuetic will increase coumadin.
[2017-12-02] MEDS: WARFARIN NA 2 MG TABLET (UD) PO SCH (17:02)
[2017-12-02] MEDS: ATORVASTATIN CA 40 MG TABLET (FP) PO SCH (22:06)
[2017-12-02] MEDS: MELATONIN 5 MG TABLETS PO PRN (22:06)
[2017-12-02] MEDS: THIAMINE HCL 100 MG TABLET (FP) PO SCH (22:06)
--- NOTE | 2017-12-02 22:14 | EKG ---
Test Reason : Blood Pressure : / mmHG Vent. Rate : 089 BPM Atrial Rate : 089 BPM P-R Int : 148 ms QRS Dur : 086 ms QT Int : 402 ms P-R-T Axes : 071 -12 176 degrees QTc Int : 489 ms NORMAL SINUS RHYTHM MARKED T WAVE ABNORMALITY, CONSIDER ANTEROLATERAL ISCHEMIA PROLONGED QT ABNORMAL ECG WHEN COMPARED WITH ECG OF 28-NOV-2017 16:15, PREMATURE VENTRICULAR COMPLEXES ARE NO LONGER PRESENT Confirmed by OSEAS TORRES, JUANI ([id number]) on 12/02/2017 10:13:51 PM Referred By: Confirmed By:JUANI FAROOQ MD
[2017-12-03] MEDS ORDERED: PANTOPRAZOLE 40 MG TABLET (FP) PO SCH (10:00)
[2017-12-03] MEDS: PRENATAL VITAMINS W/ FOLIC ACID TABLET (FP) PO SCH (10:58)
[2017-12-03] MEDS: RANITIDINE HCL 150 MG TABLET (FP) PO SCH ×2 (10:59→21:20)
[2017-12-03] MEDS: metoPROLOL SUCCINATE 25 MG TAB.SR.24H (FP) PO SCH (10:59)
[2017-12-03] MEDS: NEOMYCIN/POLYMYXIN/BACITRACIN (TRIPLE ANTIBIOTIC) 28 GM OINTMENT TP SCH ×2 (11:00→21:21)
[2017-12-03 12:47] LABS: INR 1.32 (0.82-1.09); PROTHROMBIN TIME (PATIENT) 14.9 SEC (9.7-13.0)
--- NOTE | 2017-12-03 15:09 | PN ---
[facility] Progress Note Note: Vital Signs Temperature 98.4 F 12/03/17 07:03 Pulse Rate 88 12/03/17 07:03 Respiratory Rate 18 12/03/17 07:03 Blood Pressure 131/77 12/03/17 07:03 O2 Sat by Pulse Oximetry (%) Laboratory Last Values WBC 4.1 K/mm3 (4.0-10.0) 11/29/17 05:50 RBC 2.72 M/mm3 (4.00-5.60) L 11/29/17 05:50 Hgb 9.4 GM/dL (11.7-16.9) L 11/29/17 05:50 Hct 28.9 % (35.4-49) L 11/29/17 05:50 MCV 106.3 fl (80-96) H 11/29/17 05:50 MCH 34.4 pg (25.7-33.7) H D 11/29/17 05:50 MCHC 32.4 g/dl (32.0-35.9) 11/29/17 05:50 RDW 14.4 % (11.9-15.9) D 11/29/17 05:50 Plt Count 220 K/MM3 (134-434) D 11/29/17 05:50 MPV 10.1 fl (7.5-11.1) 11/29/17 05:50 PT with INR 14.90 SEC (9.7-13.0) H 12/03/17 08:40 INR 1.32 (0.82-1.09) H 12/03/17 08:40 Sodium 140 mmol/L (136-145) 11/29/17 05:50 Potassium 4.0 mmol/L (3.5-5.1) 11/29/17 05:50 Chloride 105 mmol/L (98-107) 11/29/17 05:50 Carbon Dioxide 23 mmol/L (21-32) 11/29/17 05:50 Anion Gap 12 (8-16) 11/29/17 05:50 BUN 8 mg/dL (7-18) D 11/29/17 05:50 Creatinine 0.7 mg/dL (0.7-1.3) 11/29/17 05:50 Creat Clearance w eGFR > 60 (>60) 11/29/17 05:50 Random Glucose 106 mg/dL (74-106) 11/29/17 05:50 Calcium 8.1 mg/dL (8.5-10.1) L 11/29/17 05:50 Total Bilirubin 0.3 mg/dL (0.2-1.0) D 11/29/17 05:50 AST 102 U/L (15-37) H 11/29/17 05:50 ALT 39 U/L (12-78) D 11/29/17 05:50 Alkaline Phosphatase 72 U/L (45-117) D 11/29/17 05:50 Total Protein 8.2 g/dl (6.4-8.2) 11/29/17 05:50 Albumin 3.2 g/dl (3.4-5.0) L 11/29/17 05:50 Urine Color Colorless 11/28/17 23:10 Urine Appearance Clear 11/28/17 23:10 Urine pH 6.0 (5.0-8.0) 11/28/17 23:10 Ur Specific Ethel 1.002 (1.001-1.035) 11/28/17 23:10 Urine Protein Negative (NEGATIVE) 11/28/17 23:10 Urine Glucose (UA) Negative (NEGATIVE) 11/28/17 23:10 Urine Ketones Negative (NEGATIVE) 11/28/17 23:10 Urine Blood Negative (NEGATIVE) 11/28/17 23:10 Urine Nitrite Negative (NEGATIVE) 11/28/17 23:10 Urine Bilirubin Negative (<2.0 mg/dL) 11/28/17 23:10 Urine Urobilinogen Negative mg/dL (0.2-1.0) 11/28/17 23:10 Ur Leukocyte Esterase Negative (NEGATIVE) 11/28/17 23:10 RPR Titer Nonreactive (NONREACTIVE) 11/29/17 05:50 INR subtherapeutic, patientwith hx of heart valve replacement . Currently on Coumadin 2 mg . will increase to Coumadin to 4 mg. repeat INR in the AM.
[2017-12-03] MEDS: WARFARIN NA 2 MG TABLET (UD) PO SCH (17:55)
[2017-12-03] MEDS: ATORVASTATIN CA 40 MG TABLET (FP) PO SCH (21:20)
[2017-12-03] MEDS: THIAMINE HCL 100 MG TABLET (FP) PO SCH (21:20)
[2017-12-03] MEDS: MELATONIN 5 MG TABLETS PO PRN (21:21)
[2017-12-04] MEDS: metoPROLOL SUCCINATE 25 MG TAB.SR.24H (FP) PO SCH (10:43)
[2017-12-04] MEDS: RANITIDINE HCL 150 MG TABLET (FP) PO SCH ×2 (10:43→21:48)
[2017-12-04] MEDS: PRENATAL VITAMINS W/ FOLIC ACID TABLET (FP) PO SCH (10:43)
[2017-12-04] MEDS: NEOMYCIN/POLYMYXIN/BACITRACIN (TRIPLE ANTIBIOTIC) 28 GM OINTMENT TP SCH ×2 (10:43→21:49)
[2017-12-04 11:35] LABS: INR 1.37 (0.82-1.09); PROTHROMBIN TIME (PATIENT) 15.5 SEC (9.7-13.0)
--- NOTE | 2017-12-04 14:01 | PN ---
[facility] Progress Note Note: Laboratory Tests 11/28/17 11/29/17 11/29/17 23:10 05:50 05:50 WBC 4.1 RBC 2.72 L Hgb 9.4 L Hct 28.9 L MCV 106.3 H MCH 34.4 H D MCHC 32.4 RDW 14.4 D Plt Count 220 D MPV 10.1 PT with INR INR Sodium 140 Potassium 4.0 Chloride 105 Carbon Dioxide 23 Anion Gap 12 BUN 8 D Creatinine 0.7 Creat Clearance w eGFR > 60 Random Glucose 106 Calcium 8.1 L Total Bilirubin 0.3 D AST 102 H ALT 39 D Alkaline Phosphatase 72 D Total Protein 8.2 Albumin 3.2 L Urine Color Colorless Urine Appearance Clear Urine pH 6.0 Ur Specific [place] 1.002 Urine Protein Negative Urine Glucose (UA) Negative Urine Ketones Negative Urine Blood Negative Urine Nitrite Negative Urine Bilirubin Negative Urine Urobilinogen Negative Ur Leukocyte Esterase Negative RPR Titer 11/29/17 11/29/17 12/03/17 05:50 07:06 08:40 WBC RBC Hgb Hct MCV MCH MCHC RDW Plt Count MPV PT with INR 12.90 14.90 H INR 1.14 D 1.32 H Sodium Potassium Chloride Carbon Dioxide Anion Gap BUN Creatinine Creat Clearance w eGFR Random Glucose Calcium Total Bilirubin AST ALT Alkaline Phosphatase Total Protein Albumin Urine Color Urine Appearance Urine pH Ur Specific [place] Urine Protein Urine Glucose (UA) Urine Ketones Urine Blood Urine Nitrite Urine Bilirubin Urine Urobilinogen Ur Leukocyte Esterase RPR Titer Nonreactive 12/04/17 08:15 WBC RBC Hgb Hct MCV MCH MCHC RDW Plt Count MPV PT with INR 15.50 H INR 1.37 H Sodium Potassium Chloride Carbon Dioxide Anion Gap BUN Creatinine Creat Clearance w eGFR Random Glucose Calcium Total Bilirubin AST ALT Alkaline Phosphatase Total Protein Albumin Urine Color Urine Appearance Urine pH Ur Specific [place] Urine Protein Urine Glucose (UA) Urine Ketones Urine Blood Urine Nitrite Urine Bilirubin Urine Urobilinogen Ur Leukocyte Esterase RPR Titer Vital Signs Temperature 98.6 F 12/04/17 07:21 Pulse Rate 83 12/04/17 07:21 Respiratory Rate 18 12/04/17 07:21 Blood Pressure 131/84 12/04/17 07:21 O2 Sat by Pulse Oximetry (%) INR 1.37. Coumadin was increased yesterday to 4mg. Takes 48-72 hours to see true reflection of increase in INR results. Will continue coumadin as ordered and repeat PT/INR on 12/06/17.
[2017-12-04] MEDS ORDERED: PT OWN MED DRAWER 7, Y5N ONE ×2 (17:36→17:54)
[2017-12-04] MEDS: WARFARIN NA 2 MG TABLET (UD) PO SCH (17:53)
[2017-12-04] MEDS: ATORVASTATIN CA 40 MG TABLET (FP) PO SCH (21:48)
[2017-12-04] MEDS: THIAMINE HCL 100 MG TABLET (FP) PO SCH (21:48)
[2017-12-04] MEDS: MELATONIN 5 MG TABLETS PO PRN (21:48)
[2017-12-05 09:58] LABS: INR 1.48 (0.82-1.09); PROTHROMBIN TIME (PATIENT) 16.7 SEC (9.7-13.0)
[2017-12-05] MEDS: RANITIDINE HCL 150 MG TABLET (FP) PO SCH ×2 (10:29→22:01)
[2017-12-05] MEDS: metoPROLOL SUCCINATE 25 MG TAB.SR.24H (FP) PO SCH (10:29)
[2017-12-05] MEDS: PRENATAL VITAMINS W/ FOLIC ACID TABLET (FP) PO SCH (10:29)
[2017-12-05] MEDS: NEOMYCIN/POLYMYXIN/BACITRACIN (TRIPLE ANTIBIOTIC) 28 GM OINTMENT TP SCH ×2 (10:30→22:01)
[2017-12-05] MEDS ORDERED: PT OWN MED DRAWER 7, Y5N ONE (16:33)
[2017-12-05] MEDS: WARFARIN NA 2 MG TABLET (UD) PO SCH (17:05)
[2017-12-05] MEDS: MELATONIN 5 MG TABLETS PO PRN (22:01)
[2017-12-05] MEDS: THIAMINE HCL 100 MG TABLET (FP) PO SCH (22:01)
[2017-12-05] MEDS: ATORVASTATIN CA 40 MG TABLET (FP) PO SCH (22:01)
[2017-12-06 10:09] LABS: INR 1.67 (0.82-1.09); PROTHROMBIN TIME (PATIENT) 18.9 SEC (9.7-13.0)
[2017-12-06] MEDS: metoPROLOL SUCCINATE 25 MG TAB.SR.24H (FP) PO SCH (10:33)
[2017-12-06] MEDS: RANITIDINE HCL 150 MG TABLET (FP) PO SCH ×2 (10:33→21:58)
[2017-12-06] MEDS: PRENATAL VITAMINS W/ FOLIC ACID TABLET (FP) PO SCH (10:33)
[2017-12-06] MEDS: NEOMYCIN/POLYMYXIN/BACITRACIN (TRIPLE ANTIBIOTIC) 28 GM OINTMENT TP SCH ×2 (10:34→22:30)
[2017-12-06] MEDS ORDERED: PT OWN MED DRAWER 7, Y5N ONE ×2 (10:37→17:28)
[2017-12-06] MEDS: WARFARIN NA 2 MG TABLET (UD) PO SCH (17:48)
[2017-12-06] MEDS: ACETAMINOPHEN 325 MG TABLET (FP) PO PRN (19:03)
[2017-12-06] MEDS: THIAMINE HCL 100 MG TABLET (FP) PO SCH (21:58)
[2017-12-06] MEDS: ATORVASTATIN CA 40 MG TABLET (FP) PO SCH (21:58)
[2017-12-07] MEDS ORDERED: PT OWN MED DRAWER 7, Y5N ONE (09:08)
[2017-12-07] MEDS: NEOMYCIN/POLYMYXIN/BACITRACIN (TRIPLE ANTIBIOTIC) 28 GM OINTMENT TP SCH ×2 (10:10→21:38)
[2017-12-07] MEDS: RANITIDINE HCL 150 MG TABLET (FP) PO SCH ×2 (10:10→21:38)
[2017-12-07] MEDS: PRENATAL VITAMINS W/ FOLIC ACID TABLET (FP) PO SCH (10:11)
[2017-12-07] MEDS: metoPROLOL SUCCINATE 25 MG TAB.SR.24H (FP) PO SCH (10:11)
[2017-12-07] MEDS: WARFARIN NA 2 MG TABLET (UD) PO SCH (17:56)
[2017-12-07] MEDS: THIAMINE HCL 100 MG TABLET (FP) PO SCH (21:38)
[2017-12-07] MEDS: ATORVASTATIN CA 40 MG TABLET (FP) PO SCH (21:38)
[2017-12-07] MEDS: ACETAMINOPHEN 325 MG TABLET (FP) PO PRN (21:39)
[2017-12-07] MEDS: MELATONIN 5 MG TABLETS PO PRN (21:40)
[2017-12-08] MEDS ORDERED: PT OWN MED DRAWER 7, Y5N ONE ×3 (09:17→21:00)
[2017-12-08] MEDS: PRENATAL VITAMINS W/ FOLIC ACID TABLET (FP) PO SCH (10:30)
[2017-12-08] MEDS: metoPROLOL SUCCINATE 25 MG TAB.SR.24H (FP) PO SCH (10:30)
[2017-12-08] MEDS: RANITIDINE HCL 150 MG TABLET (FP) PO SCH ×2 (10:30→22:11)
[2017-12-08] MEDS: NEOMYCIN/POLYMYXIN/BACITRACIN (TRIPLE ANTIBIOTIC) 28 GM OINTMENT TP SCH ×2 (10:30→23:12)
[2017-12-08] MEDS: WARFARIN NA 2 MG TABLET (UD) PO SCH (18:29)
[2017-12-08] MEDS: ATORVASTATIN CA 40 MG TABLET (FP) PO SCH (22:11)
[2017-12-08] MEDS: MELATONIN 5 MG TABLETS PO PRN (22:11)
[2017-12-08] MEDS: THIAMINE HCL 100 MG TABLET (FP) PO SCH (22:11)
[2017-12-09] MEDS: NEOMYCIN/POLYMYXIN/BACITRACIN (TRIPLE ANTIBIOTIC) 28 GM OINTMENT TP SCH ×2 (10:23→21:50)
[2017-12-09] MEDS: PRENATAL VITAMINS W/ FOLIC ACID TABLET (FP) PO SCH (10:23)
[2017-12-09] MEDS: metoPROLOL SUCCINATE 25 MG TAB.SR.24H (FP) PO SCH (10:23)
[2017-12-09] MEDS: RANITIDINE HCL 150 MG TABLET (FP) PO SCH ×2 (10:23→21:49)
[2017-12-09] MEDS ORDERED: PT OWN MED DRAWER 7, Y5N ONE (16:47)
[2017-12-09] MEDS: WARFARIN NA 2 MG TABLET (UD) PO SCH (18:03)
[2017-12-09] MEDS: MELATONIN 5 MG TABLETS PO PRN (21:48)
[2017-12-09] MEDS: THIAMINE HCL 100 MG TABLET (FP) PO SCH (21:49)
[2017-12-09] MEDS: ATORVASTATIN CA 40 MG TABLET (FP) PO SCH (21:49)
[2017-12-10 10:39] LABS: INR 2.06 (0.82-1.09); PROTHROMBIN TIME (PATIENT) 23.3 SEC (9.7-13.0)
[2017-12-10] MEDS: RANITIDINE HCL 150 MG TABLET (FP) PO SCH ×2 (10:44→21:22)
[2017-12-10] MEDS: metoPROLOL SUCCINATE 25 MG TAB.SR.24H (FP) PO SCH (10:44)
[2017-12-10] MEDS: PRENATAL VITAMINS W/ FOLIC ACID TABLET (FP) PO SCH (10:44)
[2017-12-10] MEDS: NEOMYCIN/POLYMYXIN/BACITRACIN (TRIPLE ANTIBIOTIC) 28 GM OINTMENT TP SCH ×2 (10:44→21:22)
--- NOTE | 2017-12-10 14:20 | PN ---
S Progress Note Note: Patient medically stable. [place] for discharge tomorrow. Patient to follow up with primary care provider within a week from discharge.
[2017-12-10] MEDS ORDERED: PT OWN MED DRAWER 7, Y5N ONE (18:18)
[2017-12-10] MEDS: WARFARIN NA 2 MG TABLET (UD) PO SCH (18:41)
[2017-12-10] MEDS: ATORVASTATIN CA 40 MG TABLET (FP) PO SCH (21:22)
[2017-12-10] MEDS: MELATONIN 5 MG TABLETS PO PRN (21:22)
[2017-12-10] MEDS: THIAMINE HCL 100 MG TABLET (FP) PO SCH (21:22)
[2017-12-10] MEDS: ACETAMINOPHEN 325 MG TABLET (FP) PO PRN (21:23)
[2017-12-11] MEDS: RANITIDINE HCL 150 MG TABLET (FP) PO SCH ×2 (10:28→21:45)
[2017-12-11] MEDS: metoPROLOL SUCCINATE 25 MG TAB.SR.24H (FP) PO SCH (10:29)
[2017-12-11] MEDS: NEOMYCIN/POLYMYXIN/BACITRACIN (TRIPLE ANTIBIOTIC) 28 GM OINTMENT TP SCH ×2 (10:29→21:44)
[2017-12-11] MEDS: PRENATAL VITAMINS W/ FOLIC ACID TABLET (FP) PO SCH (10:29)
[2017-12-11] MEDS: WARFARIN NA 2 MG TABLET (UD) PO SCH (17:24)
[2017-12-11] MEDS: THIAMINE HCL 100 MG TABLET (FP) PO SCH (21:44)
[2017-12-11] MEDS: ATORVASTATIN CA 40 MG TABLET (FP) PO SCH (21:45)
[2017-12-11] MEDS: MELATONIN 5 MG TABLETS PO PRN (21:45)
[2017-12-12] MEDS: metoPROLOL SUCCINATE 25 MG TAB.SR.24H (FP) PO SCH (10:22)
[2017-12-12] MEDS: NEOMYCIN/POLYMYXIN/BACITRACIN (TRIPLE ANTIBIOTIC) 28 GM OINTMENT TP SCH ×2 (10:22→22:17)
[2017-12-12] MEDS: RANITIDINE HCL 150 MG TABLET (FP) PO SCH ×2 (10:22→21:57)
[2017-12-12] MEDS: PRENATAL VITAMINS W/ FOLIC ACID TABLET (FP) PO SCH (10:22)
--- NOTE | 2017-12-12 17:10 | PN ---
S Progress Note Note: Psychiatric nurse practitioner note: Patient's discharge extended until tomorrow morning due to not having an outpatient appointment scheduled for today. Pt. to be discharged to [facility]'s outpatient program tomorrow.
[2017-12-12] MEDS ORDERED: PT OWN MED DRAWER 7, Y5N ONE (18:59)
[2017-12-12] MEDS: WARFARIN NA 2 MG TABLET (UD) PO SCH (19:01)
[2017-12-12] MEDS: MELATONIN 5 MG TABLETS PO PRN (21:56)
[2017-12-12] MEDS: ACETAMINOPHEN 325 MG TABLET (FP) PO PRN (21:56)
[2017-12-12] MEDS: THIAMINE HCL 100 MG TABLET (FP) PO SCH (21:56)
[2017-12-12] MEDS: ATORVASTATIN CA 40 MG TABLET (FP) PO SCH (21:57)
[2017-12-13 07:10] VITALS: TEMP 98.3
[2017-12-13] MEDS ORDERED: PT OWN MED DRAWER 7, Y5N ONE ×2 (09:29→10:39)
[2017-12-13 10:21] VITALS: BP 111/76; PULSE 99
[2017-12-13] MEDS: RANITIDINE HCL 150 MG TABLET (FP) PO SCH (10:40)
[2017-12-13] MEDS: PRENATAL VITAMINS W/ FOLIC ACID TABLET (FP) PO SCH (10:40)
[2017-12-13] MEDS: metoPROLOL SUCCINATE 25 MG TAB.SR.24H (FP) PO SCH (10:40)
[2017-12-13] MEDS: NEOMYCIN/POLYMYXIN/BACITRACIN (TRIPLE ANTIBIOTIC) 28 GM OINTMENT TP SCH (10:40)
== END 2017-12-13 11:10 | disposition home or self-care (01) | DRG 772 ==
LOC: YASAS 11:59 → Y3W 15:26
PROVIDERS: ADMIT Psychiatry & Neurology Psychiatry; ATTEND Psychiatry & Neurology Psychiatry
PROC: HZ42ZZZ Group Counseling for Substance Abuse Treatment, Cognitive-Behavioral (ICD-10-PCS; principal; 2017-11-28)
DX: F10.20 Alcohol dependence, uncomplicated (principal); F10.24 Alcohol dependence with alcohol-induced mood disorder; F10.282 Alcohol dependence with alcohol-induced sleep disorder; I10 Essential (primary) hypertension; E78.00 Pure hypercholesterolemia, unspecified; F32.9 Major depressive disorder, single episode, unspecified; Z87.11 Personal history of peptic ulcer disease; Z98.890 Other specified postprocedural states; R45.89 Other symptoms and signs involving emotional state
CPT/HCPCS: 36415; 80053; 81003; 85027; 85610; 86593; 93005; 93010